=== PATIENT | female | born 1965 | race African-American/Black ===

== ENCOUNTER 2016-04-08 23:48 | Emergency (ER) | payer SELFPAY ==
[~2016-04-08] VITALS: Ht 167.6 cm; Wt 89.8 kg
[~2016-04-08 23:48] MED LIST: ACET-704 PO; AZIT1PAC7 PO; CYCL10TA2 PO; HYDR-963 PO; LIDO20SO PO; METF500T4 PO; METH4TAB2 PO; NAPR500T3 PO; PROAIR HFA8.5 GM INH; PROM25TA10 PO
[2016-04-09] MEDS ORDERED: LIDOCAINE 1% / SOD BICARB 8.4% 20 ML VIAL. IJ ONE ×2 (01:44→02:00)
[2016-04-09] MEDS ORDERED: SULF1TAB24 PO (03:00)
[2016-04-09] MEDS ORDERED: HYDR-971 PO (03:00)
--- NOTE | 2016-04-09 03:01 | PHYS DOC ---
Past Medical History Past Medical History: Diabetes-Type II, Other Additional Past Medical Histor: chronic back and hip pain,bacterial vaginosis, ENDOMETRIOSIS Past Surgical History: Other Additional Past Surgical Histo: toenails, L ARM SURG Alcohol Use: Occasionally Drug Use: None Adult General Chief Complaint Chief Complaint: BREAST PROBLEM HPI HPI Patient is a 50 year old female who presents with complaints of painful swelling to the right breast. Patient states that this started 2 weeks ago and has significantly worsened over the past 2 days. Patient noticed a large swollen area along the medial lower portion of her right breast. Patient denies any drainage from this area. Patient states that she is noticing increasing redness. Patient states that the lesion is very tender to touch and rates her pain currently is 10 out of 10. Patient denies any history of similar symptoms. Patient has not taken any medications to help with symptoms. Patient has history of type 2 diabetes mellitus. Patient has not had any associated fever, lightheadedness, or shortness of breath. Review of Systems Review of Systems Constitutional: Denies fever or chills [] Eyes: Denies change in visual acuity, redness, or eye pain [] HENT: Denies nasal congestion or sore throat [] Respiratory: Denies cough or shortness of breath [] Cardiovascular: No additional information not addressed in HPI [] GI: Denies abdominal pain, nausea, vomiting, bloody stools or diarrhea [] : Denies dysuria or hematuria [] Musculoskeletal: Denies back pain or joint pain [] Integument: Tenderness, redness, and swelling to right breast [] Neurologic: Denies headache, focal weakness or sensory changes [] Endocrine: Denies polyuria or polydipsia [] Current Medications Current Medications Current Medications Medications (Trade) Dose Ordered Sig/[facility] Start Time Stop Time Status Last Admin Dose Admin Acetaminophen/ Hydrocodone Bitart (Lortab 5/325) 1 tab 1X ONCE 04/09/16 03:15 04/09/16 03:16 DC 04/09/16 03:25 1 TAB Lidocaine/Sodium Bicarbonate (Buffered Lidocaine 1%) 20 ml 1X ONCE 04/09/16 02:00 04/09/16 02:01 DC 04/09/16 02:00 20 ML Trimethoprim/ Sulfamethoxazole (Bactrim Ds) 1 tab 1X ONCE 04/09/16 03:15 04/09/16 03:16 DC 04/09/16 03:24 1 TAB Allergies Allergies Allergies Coded Allergies Type Severity Reaction Last Updated Verified No Known Drug Allergies 04/11/15 No Physical Exam Physical Exam Constitutional: Alert, obese, afebrile, appears in mild to moderate discomfort. [] HENT: Normocephalic, atraumatic, bilateral external ears normal, oropharynx moist, no oral exudates, nose normal. [] Eyes: PERRLA, EOMI, conjunctiva normal, no discharge. [] Neck: Normal range of motion, no tenderness, supple, no stridor. [] Cardiovascular:Heart rate regular rhythm, no murmur [] Lungs & Thorax: Bilateral breath sounds clear to auscultation, 3-1/2 cm fluctuant lesion located in the inferior medial quadrant, surrounding induration and erythema present, tender to palpation [] Abdomen: Bowel sounds normal, soft, no tenderness, no masses, no pulsatile masses. [] Extremities: No tenderness, no cyanosis, no clubbing, ROM intact, no edema. [] Neurologic: Alert and oriented X 3, normal motor function, normal sensory function, no focal deficits noted. [] Current Patient Data Vital Signs Vital Signs Date Time Temp Pulse Resp B/P Pulse Ox O2 Delivery O2 Flow Rate FiO2 04/09/16 03:25 16 Room Air 04/09/16 03:09 76 133/91 100 04/09/16 00:23 97.9 97.9 EKG EKG Not performed [] Radiology/Procedures Radiology/Procedures Not performed [] Course & Med Decision Making Course & Med Decision Making Pertinent Labs and Imaging studies reviewed. (See chart for details) The patient's abscess was drained as outlined in the procedure note. Patient was started on Bactrim. Patient was referred to Dr. Gamino of general surgery for follow-up in 3-4 days. Advised return to emergency department for any worsening symptoms. Patient voiced understanding and in agreement with treatment plan. Dragon Disclaimer Dragon Disclaimer This electronic medical record was generated, in whole or in part, using a voice recognition dictation system. Incision and Drainage Indication: Right breast abscess Procedure: The patient was positioned appropriately. Local anesthesia was achieved with injection of buffered lidocaine 1%. An incision was then made over the apex of the lesion and drainage of approximately 5-10 mL's of purulent material was expressed. The drainage cavity was packed with sterile gauze. The patients tetanus status updated as needed. The patient tolerated the procedure well. Complications: none. Departure Departure Impression: Primary Impression: Breast abscess Disposition: 01 HOME, SELF-CARE Condition: IMPROVED Referrals: HYUN RGEENE (PCP) LISSETT GAMINO MD Patient Instructions: Abscess, Abscess, Care After Additional Instructions: Follow-up with general surgery in the next 3-4 days. If he cannot get in with the general surgeon in that time, you will need to see your primary doctor as she will need to have your packing replaced within that time. Finish all antibiotics as prescribed. Return to the emergency department for any worsening symptoms. Scripts Hydrocodone/Apap 5-325 ([place] 5-325 Tablet)1 Each Tablet1-2 Tab PO Q4-6HRS PRN PAIN #20 TAB Prov:FERMIN GUILLAUME MD 04/09/16 Sulfamethoxazole/Trimethoprim (Bactrim Ds Tablet)1 Each Tablet1 Tab PO BID #20 TAB Prov:FERMIN GUILLAUME MD 04/09/16 FERMIN GUILLAUME MD Apr 09, 2016 03:01
[2016-04-09 03:09] VITALS: BP 133/91
[2016-04-09] MEDS ORDERED: HYDROCODONE/APAP 5/325MG TABLET. PO ONE (03:15)
[2016-04-09] MEDS ORDERED: SMZ/TMP 800/160MG TABLET. PO ONE (03:15)
== END 2016-04-09 03:28 | disposition home or self-care (01) ==
LOC: ER 23:48
DX: N61.1 Abscess of the breast and nipple (principal); E11.9 Type 2 diabetes mellitus without complications; G89.29 Other chronic pain
CPT/HCPCS: 10060; 99283-25

== ENCOUNTER 2016-06-10 07:26 | Emergency (ER) | payer SELFPAY ==
[~2016-06-10] VITALS: Ht 167.6 cm; Wt 86.2 kg
[~2016-06-10 07:26] MED LIST changes: +HYDR-971 PO; +SULF1TAB24 PO
[2016-06-10] MEDS ORDERED: IV NORMAL SALINE 1000ML BAG 1,000 ML IV SCH (07:42)
[2016-06-10] MEDS ORDERED: FENTANYL PF 100 MCG/2 ML VIAL. IV ONE (07:45)
[2016-06-10] MEDS ORDERED: 0.9 % SODIUM CHLORIDE 10 ML DISP.SYRIN. IV PRN (07:45)
[2016-06-10] MEDS ORDERED: ONDANSETRON PF 4 MG/2 ML VIAL. IV ONE (07:45)
[2016-06-10] MEDS ORDERED: KETOROLAC TROMETHAMINE 30 MG/ML INJ. IV ONE (07:45)
--- NOTE | 2016-06-10 07:48 | PHYS DOC ---
Past Medical History Past Medical History: Diabetes-Type II, Other Additional Past Medical Histor: chronic back and hip pain,bacterial vaginosis, ENDOMETRIOSIS Past Surgical History: Other Additional Past Surgical Histo: toenails, L ARM SURG Alcohol Use: Occasionally Drug Use: None Adult General Chief Complaint Chief Complaint: FLANK PAIN [place] [employer] HPI Patient is a 50 year old female presents emergency Department today with complaint of atraumatic left flank pain that radiates to her lower abdomen 4 days. Patient states that the onset was sudden. She reports episodes of nausea without vomiting. She denies fevers or chills, myalgias or arthralgias. Patient states that she has had urinary tract infections and kidney infections in the past. She denies antibiotic use within the past 90 days. She denies any history of kidney stones. Patient does have a history of chronic back pain which she takes T-4s and "a muscle relaxer" for this. She states that the pain in her back is different than typical. She denies radiation the pain down her leg she denies saddle anesthesia, see or bowel. Patient states that she does feel some pressure when she attempts to urinate. She denies any hematuria. Patient denies any history of gastrointestinal disease. She denies any previous abdominal surgeries. She had a pelvic laparoscopic procedure once for endometriosis. She denies any history of previous bowel obstructions. Review of Systems Review of Systems Constitutional: Denies fever or chills [] Eyes: Denies change in visual acuity, redness, or eye pain [] HENT: Denies nasal congestion or sore throat [] Respiratory: Denies cough or shortness of breath [] Cardiovascular: No additional information not addressed in HPI [] GI: Denies abdominal pain, nausea, vomiting, bloody stools or diarrhea [] : Denies dysuria or hematuria [] Musculoskeletal: Denies back pain or joint pain [] Integument: Denies rash or skin lesions [] Neurologic: Denies headache, focal weakness or sensory changes [] Endocrine: Denies polyuria or polydipsia [] Current Medications Current Medications Current Medications Medications (Trade) Dose Ordered Sig/[facility] Start Time Stop Time Status Last Admin Dose Admin Fentanyl Citrate (Fentanyl 2ml Vial) 50 mcg 1X ONCE 06/10/16 07:45 06/10/16 07:57 DC 06/10/16 08:20 50 MCG Ketorolac Tromethamine (Toradol) 30 mg 1X ONCE 06/10/16 07:45 06/10/16 07:57 DC 06/10/16 08:20 30 MG Ondansetron HCl (Zofran) 4 mg 1X ONCE 06/10/16 07:45 06/10/16 07:57 DC 06/10/16 08:19 4 MG Sodium Chloride (Iv Sodium Chloride 0.9% 1000ml Bag) 1,000 ml @ 1,000 mls/hr Q1H 06/10/16 07:42 06/10/16 08:41 DC 06/10/16 08:21 1,000 MLS/HR Sodium Chloride (Normal Saline Flush) 10 ml QSHIFT PRN 06/10/16 07:45 06/10/16 08:19 10 ML Allergies Allergies Allergies Coded Allergies Type Severity Reaction Last Updated Verified No Known Drug Allergies 04/11/15 No Physical Exam Physical Exam Constitutional: Well developed, well nourished, mild, non-toxic appearance. HENT: Normocephalic, atraumatic, bilateral external ears normal, oropharynx moist, no oral exudates, nose normal. [] Eyes: PERRLA, EOMI, conjunctiva normal, no discharge. [] Neck: Normal range of motion, no tenderness, supple, no stridor. [] Cardiovascular:Heart rate regular rhythm, no murmur Lungs & Thorax: Bilateral breath sounds clear to auscultation Abdomen: Bowel sounds normal, soft, no tenderness, no masses, no pulsatile masses. Skin: Warm, dry, no erythema, no rash. [] Back: Patient's back is without any evidence of injury or overlying skin lesions such as shingles. Chest tender to percussion in the left lower CVA region. There is no tenderness to the right side of the back or CVA region. Extremities: No tenderness, no cyanosis, no clubbing, ROM intact, no edema. [] Neurologic: Alert and oriented X 3, normal motor function, normal sensory function, no focal deficits noted. [] Psychologic: Affect normal, judgement normal, mood normal. [] Current Patient Data Vital Signs Vital Signs Date Time Temp Pulse Resp B/P Pulse Ox O2 Delivery O2 Flow Rate FiO2 06/10/16 08:20 16 98 Room Air 06/10/16 07:38 97.7 80 164/85 97.7 Lab Values Laboratory Tests Test 06/10/16 07:30 06/10/16 08:10 06/10/16 09:15 Urine Collection Type Unknown Urine Color Yellow Urine Clarity Clear Urine pH 6.0 Urine Specific [place] 1.025 Urine Protein 30mg/dL (NEG-TRACE) Urine Glucose (UA) >=1000mg/dL (NEG) Urine Ketones (Stick) Negativemg/dL (NEG) Urine Blood Negative (NEG) Urine Nitrite Negative (NEG) Urine Bilirubin Negative (NEG) Urine Urobilinogen Dipstick 0.2mg/dL (0.2 mg/dL) Urine Leukocyte Esterase Negative (NEG) Urine RBC 1-2/HPF (0-2) Urine WBC 1-4/HPF (0-4) Urine Squamous Epithelial Cells Mod/LPF Urine Bacteria Few/HPF (0-FEW) Urine Mucus Mod/LPF White Blood Count 5.7x10^3/uL (4.0-11.0) Red Blood Count 4.67x10^6/uL (3.50-5.40) Hemoglobin 14.0g/dL (12.0-15.5) Hematocrit 42.7% (36.0-47.0) Mean Corpuscular Volume 92fL (79-100) Mean Corpuscular Hemoglobin 30pg (25-35) Mean Corpuscular Hemoglobin Concent 33g/dL (31-37) Red Cell Distribution Width 14.7% (11.5-14.5) H Platelet Count 328x10^3/uL (140-400) Neutrophils (%) (Auto) 47% (31-73) Lymphocytes (%) (Auto) 41% (24-48) Monocytes (%) (Auto) 8% (0-9) Eosinophils (%) (Auto) 3% (0-3) Basophils (%) (Auto) 1% (0-3) Neutrophils # (Auto) 2.7x10^3uL (1.8-7.7) Lymphocytes # (Auto) 2.4x10^3/uL (1.0-4.8) Monocytes # (Auto) 0.4x10^3/uL (0.0-1.1) Eosinophils # (Auto) 0.2x10^3/uL (0.0-0.7) Basophils # (Auto) 0.1x10^3/uL (0.0-0.2) Sodium Level 136mmol/L (136-145) Potassium Level 4.1mmol/L (3.5-5.1) Chloride Level 100mmol/L (98-107) Carbon Dioxide Level 28mmol/L (21-32) Anion Gap 8 (6-14) Blood Urea Nitrogen 9mg/dL (7-20) Creatinine 0.7mg/dL (0.6-1.0) Estimated GFR (Cockcroft-Gault) 106.3 BUN/Creatinine Ratio 13 (6-20) Glucose Level 288mg/dL (70-99) H Calcium Level 8.2mg/dL (8.5-10.1) L Total Bilirubin 0.2mg/dL (0.2-1.0) Aspartate Amino Transferase (AST) 12U/L (15-37) L Alanine Aminotransferase (ALT) 23U/L (14-59) Alkaline Phosphatase 77U/L (46-116) Total Protein 6.5g/dL (6.4-8.2) Albumin 2.9g/dL (3.4-5.0) L Albumin/Globulin Ratio 0.8 (1.0-1.7) L Lipase 107U/L (73-393) Laboratory Tests 06/10/16 08:10 Laboratory Tests 06/10/16 09:15 EKG EKG [] Radiology/Procedures Radiology/Procedures [facility] [address] [place] [address] IMAGING REPORT Signed PATIENT: JORDON OSORIO ACCOUNT: [id number] : 1965 LOCATION: ER AGE: 50 SEX: F EXAM STATUS: REG ER ORD. PHYSICIAN: TAWN HARVEY REASON: LEFT flank pain radiating to lower abdomen PROCEDURE: CT ABDOMEN PELVIS WO CONTRAST CT of the abdomen and pelvis without contrast, 06/10/2016: History: Left flank pain Noncontrast scans were obtained through the urinary tract utilizing the renal stone protocol. This a limited study for evaluation of the possibility of urinary tract calculi. Comparison is made to a study from 03/17/2015. No intrarenal calculi are identified. The renal collecting systems and ureters are not dilated. The ureters cannot be clearly traced through the distal pelvis due to their small size. No ureteral calculus is identified. Mild vascular calcifications are present in the pelvis. The partially filled urinary bladder is unremarkable. There is minimal linear scarring or atelectasis in the lung bases. There is mild heterogeneous decreased density in the liver, best seen in the right lobe. The geographic pattern suggests that this probably represents patchy fatty infiltration. The gallbladder is unremarkable. No pancreatic abnormality is seen. The spleen is of normal size. Aortoiliac calcific plaquing is present without evidence of aneurysm. No abdominal or pelvic adenopathy is seen. There are a few scattered colonic diverticula. No paracolonic inflammatory process is seen. There is a moderate amount of stool scattered throughout the colon. The appendix shows no abnormality. The small bowel loops are unremarkable. No free fluid or free air is evident in the abdomen or pelvis. There is anterior fascial bulging at the umbilical level, containing only fat. IMPRESSION: 1. No urinary tract calculi are identified. 2. Mild colonic diverticulosis. 3. Mildly heterogeneous liver in a pattern suggesting patchy fatty infiltration. PQRS Compliance Statement: One or more of the following individualized dose reduction techniques were utilized for this examination: 1. Automated exposure control 2. Adjustment of the mA and/or kV according to patient size 3. Use of iterative reconstruction technique DICTATED and SIGNED BY: VON COBB MD DATE: 06/10/16926 CC: TWAN HARVEY; HYUN GREENE ~ ] Course & Med Decision Making Course & Med Decision Making Patient's had an uneventful stay in the emergency department feels "much better ". Patient readily admits that she does not want check her blood sugar daily. 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 At this time, patient feels comfortable enough to go home and follow up with her primary care doctor. [place] Disclaimer Dragon Disclaimer This electronic medical record was generated, in whole or in part, using a voice recognition dictation system. Departure Departure Impression: Primary Impression: Flank pain Additional Impression: Hyperglycemia due to type 2 diabetes mellitus Disposition: 01 HOME, SELF-CARE Condition: IMPROVED Referrals: HYUN GREENE (PCP) Patient Instructions: 1800 Calorie Diet for Diabetes Meal Planning, Flank Pain , [id number] Additional Instructions: 1. The CT scan of your abdomen and pelvis today shows no kidney stones, inflammation of your internal organs or obstructions of your bowel. Your lab tests today show no evidence of infection. Your blood sugar today, however, is 288. 2. Review the discharge instructions provided for self-care and reasons to return to the emergency department. It is very important very important to follow-up with your primary care doctor to discuss blood sugar management. 3. Take the medication as prescribed. 4. Contact your primary care doctor's office in the morning to schedule follow- up appointment for reevaluation within 5-7 days. 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
[2016-06-10 07:54] LABS: BILIRUBIN,URINE NEGATIVE (NEG); GLUCOSE,URINE >=1000 mg/dL (NEG); NITRITE,URINE NEGATIVE (NEG); PROTEIN,URINE 30 mg/dL (NEG-TRACE); UROBILINOGEN,URINE 0.2 mg/dL (0.2 mg/dL)
[2016-06-10 08:05] LABS: BACTERIA,URINE FEW /HPF (0-FEW); SQUAMOUS EPITHELIAL CELL,UR MOD /LPF
[2016-06-10 08:16] LABS: BASO # 0.1 x10^3/uL (0.0-0.2); BASO % 1 % (0-3); EOS % 3 % (0-3); HEMATOCRIT 42.7 % (36.0-47.0); LYMPH # 2.4 x10^3/uL (1.0-4.8); LYMPH % 41 % (24-48); MEAN CORPUSCULAR HEMOGLOBIN 30 pg (25-35); MEAN CORPUSCULAR HGB CONC 33 g/dL (31-37); MEAN CORPUSCULAR VOLUME 92 fL (79-100); MONO % 8 % (0-9); NEUT % 47 % (31-73); PLATELET COUNT 328 x10^3/uL (140-400); RED BLOOD COUNT 4.67 x10^6/uL (3.50-5.40); RED CELL DISTRIBUTION WIDTH 14.7 % (11.5-14.5); WHITE BLOOD COUNT 5.7 x10^3/uL (4.0-11.0)
[2016-06-10 09:30] VITALS: BP 154/77
[2016-06-10 09:38] LABS: CALCIUM 8.2 mg/dL (8.5-10.1); CREATININE 0.7 mg/dL (0.6-1.0); GFR 106.3; POTASSIUM 4.1 mmol/L (3.5-5.1)
--- NOTE | 2016-06-10 09:40 | RAD ---
CT of the abdomen and pelvis without contrast, 06/10/2016: History: Left flank pain Noncontrast scans were obtained through the urinary tract utilizing the renal stone protocol. This a limited study for evaluation of the possibility of urinary tract calculi. Comparison is made to a study from 03/17/2015. No intrarenal calculi are identified. The renal collecting systems and ureters are not dilated. The ureters cannot be clearly traced through the distal pelvis due to their small size. No ureteral calculus is identified. Mild vascular calcifications are present in the pelvis. The partially filled urinary bladder is unremarkable. There is minimal linear scarring or atelectasis in the lung bases. There is mild heterogeneous decreased density in the liver, best seen in the right lobe. The geographic pattern suggests that this probably represents patchy fatty infiltration. The gallbladder is unremarkable. No pancreatic abnormality is seen. The spleen is of normal size. Aortoiliac calcific plaquing is present without evidence of aneurysm. No abdominal or pelvic adenopathy is seen. There are a few scattered colonic diverticula. No paracolonic inflammatory process is seen. There is a moderate amount of stool scattered throughout the colon. The appendix shows no abnormality. The small bowel loops are unremarkable. No free fluid or free air is evident in the abdomen or pelvis. There is anterior fascial bulging at the umbilical level, containing only fat. IMPRESSION: 1. No urinary tract calculi are identified. 2. Mild colonic diverticulosis. 3. Mildly heterogeneous liver in a pattern suggesting patchy fatty infiltration. PQRS Compliance Statement: One or more of the following individualized dose reduction techniques were utilized for this examination: 1. Automated exposure control 2. Adjustment of the mA and/or kV according to patient size 3. Use of iterative reconstruction technique
[2016-06-10 10:03] LABS: ALBUMIN 2.9 g/dL (3.4-5.0); ALBUMIN/GLOBULIN RATIO 0.8 (1.0-1.7); TOTAL BILIRUBIN 0.2 mg/dL (0.2-1.0); TOTAL PROTEIN 6.5 g/dL (6.4-8.2)
[2016-06-10] MEDS ORDERED: HYDR-971 PO (10:32)
[2016-06-10] MEDS ORDERED: ORPH100T PO (10:32)
[2016-06-10] MEDS ORDERED: HYDROCODONE/APAP 5/325MG TABLET. PO ONE (10:45)
== END 2016-06-10 10:40 | disposition home or self-care (01) ==
LOC: ER 07:26
DX: R10.9 Unspecified abdominal pain (principal); E11.65 Type 2 diabetes mellitus with hyperglycemia; G89.29 Other chronic pain
CPT/HCPCS: 36415; 74176; 80053; 81001; 83690; 85027; 96361; 96374; 96375; 99285; J1885; J2405; J3010; J7030

== ENCOUNTER 2016-07-02 17:41 | Emergency (ER) | payer SELFPAY ==
[~2016-07-02] VITALS: Ht 167.6 cm; Wt 85.7 kg
[~2016-07-02 17:41] MED LIST changes: +ORPH100T PO
[2016-07-02 17:50] VITALS: BP 181/96
[2016-07-02] MEDS ORDERED: METF500T9 PO (18:04)
[2016-07-02] MEDS ORDERED: NYST15CR2 TP (18:04)
--- NOTE | 2016-07-02 18:05 | PHYS DOC ---
Past Medical History Past Medical History: Diabetes-Type II, Other Additional Past Medical Histor: chronic back and hip pain,bacterial vaginosis, ENDOMETRIOSIS Past Surgical History: Other Additional Past Surgical Histo: toenails, L ARM SURG laproscopy Alcohol Use: Occasionally Drug Use: None Adult General Chief Complaint Chief Complaint: ABSCESS HPI HPI Patient is a 50 year old male presents to the emergency department with a rash beneath her right breast. She states she's in the emergency department approximately one month ago and had an abscess drained. She states that she took the medicines as directed and actually felt better until approximately 3 days ago when she developed a rash beneath the breast. She also states she is out of her metformin Sten release and is seeking a refill amount as well. She denies any chest pain, shortness of breath, nausea, vomiting, chest or abdominal pain. Review of Systems Review of Systems Constitutional: Denies fever or chills [] Eyes: Denies change in visual acuity, redness, or eye pain [] HENT: Denies nasal congestion or sore throat [] Respiratory: Denies cough or shortness of breath [] Cardiovascular: No additional information not addressed in HPI [] GI: Denies abdominal pain, nausea, vomiting, bloody stools or diarrhea [] : Denies dysuria or hematuria [] Musculoskeletal: Denies back pain or joint pain [] Integument: Denies rash or skin lesions [] Neurologic: Denies headache, focal weakness or sensory changes [] Endocrine: Denies polyuria or polydipsia [] Allergies Allergies Allergies Coded Allergies Type Severity Reaction Last Updated Verified No Known Drug Allergies 04/11/15 No Physical Exam Physical Exam Constitutional: Well developed, well nourished, no acute distress, non-toxic appearance. [] HENT: Normocephalic, atraumatic, bilateral external ears normal, oropharynx moist, no oral exudates, nose normal. [] Eyes: PERRLA, EOMI, conjunctiva normal, no discharge. [] Neck: Normal range of motion, no tenderness, supple, no stridor. [] Cardiovascular:Heart rate regular rhythm, no murmur [] Lungs & Thorax: Bilateral breath sounds clear to auscultation [] Abdomen: Bowel sounds normal, soft, no tenderness, no masses, no pulsatile masses. [] Skin: Warm, dry, no erythema, no rash. [] Back: No tenderness, no CVA tenderness. [] Extremities: No tenderness, no cyanosis, no clubbing, ROM intact, no edema. [] Neurologic: Alert and oriented X 3, normal motor function, normal sensory function, no focal deficits noted. [] Psychologic: Affect normal, judgement normal, mood normal. [] EKG EKG [] Radiology/Procedures Radiology/Procedures [] Course & Med Decision Making Course & Med Decision Making Pertinent Labs and Imaging studies reviewed. (See chart for details) [] Dragon Disclaimer Dragon Disclaimer This electronic medical record was generated, in whole or in part, using a voice recognition dictation system. Departure Departure Impression: Primary Impression: Candidal dermatitis Additional Impression: Medication refill Disposition: HOME, SELF-CARE Condition: STABLE Referrals: HYUN GREENE (PCP) Patient Instructions: Medication Refill, Emergency Department Scripts Nystatin/Triamcin (NYSTATIN-TRIAMCINOLONE CREAM) 15 Gm Cream..g. 1 IMANI TP BID for 10 Days, #30 GM 1 Refill Prov: LOLY MCKINNON APRN 07/02/16 Metformin Hcl (METFORMIN HCL ER) 500 Mg Tab.er.24h 500 MG PO [id number] for ANTI-DIABETIC, #30 TAB 1 Refill Prov: LOLY MCKINNON APRN 07/02/16 Problem Qualifiers LOLY MCKINNON APRN July 02, 2016 18:04
== END 2016-07-02 18:20 | disposition home or self-care (01) ==
LOC: ER 17:41
DX: L30.9 Dermatitis, unspecified (principal); Z76.0 Encounter for issue of repeat prescription; E11.9 Type 2 diabetes mellitus without complications
CPT/HCPCS: 99283

== ENCOUNTER 2016-08-25 16:28 | Emergency (ER) | payer OTHER ==
[~2016-08-25] VITALS: Ht 167.6 cm; Wt 84.4 kg
[~2016-08-25 16:28] MED LIST changes: -AZIT1PAC7 PO; +AZIT1PAC9 PO; +METF500T9 PO; +NYST15CR2 TP
[2016-08-25 17:00] VITALS: BP 132/79
[2016-08-25] MEDS ORDERED: CYCL10TA2 PO (17:05)
[2016-08-25] MEDS ORDERED: TRAM50TA PO (17:05)
[2016-08-25] MEDS ORDERED: NAPR500T PO (17:05)
--- NOTE | 2016-08-25 17:06 | PHYS DOC ---
Past Medical History Past Medical History: Diabetes-Type II, Other Additional Past Medical Histor: chronic back and hip pain,bacterial vaginosis, ENDOMETRIOSIS Past Surgical History: Other Additional Past Surgical Histo: toenails, L ARM SURG laproscopy Alcohol Use: Occasionally Drug Use: None Adult General Chief Complaint Chief Complaint: LOWER BACK PAIN OR INJURY [facility] HPI Patient is a 50 year old female presents to the emergency department with complaints of exacerbation of her chronic back pain. Patient states she is not currently taking any medications as she does not have healthcare insurance. She states she resumed her healthcare insurance yesterday and had increase in the right lower back pain. She states the pain is chronic for her and is typical of her chronic back pain. She is here seeking pain relief. She denies abdominal pain, she denies loss of bowel or bladder control. She denies loss of function of lower shimmy. Review of Systems Review of Systems Constitutional: Denies fever or chills [] Eyes: Denies change in visual acuity, redness, or eye pain [] HENT: Denies nasal congestion or sore throat [] Respiratory: Denies cough or shortness of breath [] Cardiovascular: No additional information not addressed in HPI [] GI: Denies abdominal pain, nausea, vomiting, bloody stools or diarrhea [] : Denies dysuria or hematuria [] Musculoskeletal: Low back pain Integument: Denies rash or skin lesions [] Neurologic: Denies headache, focal weakness or sensory changes [] Endocrine: Denies polyuria or polydipsia [] Allergies Allergies Allergies Coded Allergies Type Severity Reaction Last Updated Verified No Known Drug Allergies 04/11/15 No Physical Exam Physical Exam Constitutional: Well developed, well nourished, no acute distress, non-toxic appearance. [] Neck: Normal range of motion, no tenderness, supple, no stridor. [] Cardiovascular:Heart rate regular rhythm, no murmur [] Lungs & Thorax: Bilateral breath sounds clear to auscultation [] Abdomen: Bowel sounds normal, soft, no tenderness, no masses, no pulsatile masses. [] Skin: Warm, dry, no erythema, no rash. [] Back: Mild tenderness to palpate right sacroiliac crest into the right hip. Negative straight raise leg test. She has no saddle anesthesia. Muscle strength 5 over 5, DTRs 2 over 4. Neurovascular intact distally. Extremities: No tenderness, no cyanosis, no clubbing, ROM intact, no edema. [] Neurologic: Alert and oriented X 3, normal motor function, normal sensory function, no focal deficits noted. [] Psychologic: Affect normal, judgement normal, mood normal. [] EKG EKG [] Radiology/Procedures Radiology/Procedures [] Course & Med Decision Making Course & Med Decision Making Pertinent Labs and Imaging studies reviewed. (See chart for details) [] Dragon Disclaimer Dragon Disclaimer This electronic medical record was generated, in whole or in part, using a voice recognition dictation system. Departure Departure Impression: Primary Impression: Back pain Disposition: HOME, SELF-CARE Condition: STABLE Referrals: HYUN GREENE (PCP) Patient Instructions: Chronic Back Pain Scripts Naproxen (NAPROSYN) 500 Mg Tablet 1 TAB PO BID Y for PAIN, #20 TAB 1 Refill Prov: LOLY MCKINNON APRN 08/25/16 Tramadol Hcl (TRAMADOL HCL) 50 Mg Tablet 1 TAB PO PRN Q6HRS Y for PAIN, #12 TAB Prov: LOLY MCKINNON APRN 08/25/16 Cyclobenzaprine Hcl (CYCLOBENZAPRINE HCL) 10 Mg Tablet 1 TAB PO TID Y for MUSCLE SPASMS, #30 TAB Prov: LOLY MCKINNON APRN 08/25/16 LOLY MCKINNON APRN Aug 25, 2016 17:05
[2016-08-25] MEDS ORDERED: ORPHENADRINE CITRATE 60 MG/2 ML VIAL. IM ONE (17:30)
== END 2016-08-25 17:48 | disposition home or self-care (01) ==
LOC: ER 16:28
DX: M54.5 Low back pain (principal); G89.29 Other chronic pain; E11.9 Type 2 diabetes mellitus without complications
CPT/HCPCS: 96372; 99283; J2360

== ENCOUNTER 2017-02-26 11:20 | Emergency (ER) | payer OTHER ==
[2017-02-26] MEDS: KETOROLAC 60 MG/2 ML INJ. IM (12:00)
[2017-02-26] MEDS: LIDOCAINE 2% VISCOUS 15 ML SOLUTION. SWSW (12:00)
== END 2017-02-26 12:19 | disposition home or self-care (01) ==
LOC: ER 11:20
DX: J02.8 Acute pharyngitis due to other specified organisms (principal); B97.89 Other viral agents as the cause of diseases classified elsewhere; E11.9 Type 2 diabetes mellitus without complications
CPT/HCPCS: 96372; 99283-25; J1885

== ENCOUNTER 2017-02-27 21:32 | Emergency (ER) | payer OTHER ==
[2017-02-27] MEDS: predniSONE 20 MG TABLET PO (22:04)
[2017-02-27] MEDS: diazePAM 5 MG TABLET PO (22:04)
[2017-02-27] MEDS: MORPHINE SULFATE 10 MG/ML VIAL. IM (22:05)
== END 2017-02-27 22:49 | disposition home or self-care (01) ==
LOC: ER 21:32
DX: J06.9 Acute upper respiratory infection, unspecified (principal); M54.2 Cervicalgia; H92.01 Otalgia, right ear; J02.8 Acute pharyngitis due to other specified organisms; B97.89 Other viral agents as the cause of diseases classified elsewhere; E11.9 Type 2 diabetes mellitus without complications
CPT/HCPCS: 96372; 99283-25; J2270; J7512

== ENCOUNTER 2017-04-04 00:07 | Emergency (ER) | payer OTHER ==
[2017-04-04 00:42] LABS: URINE HCG POC HCG NEGATIVE (Negative)
[2017-04-04 01:04] LABS: BILIRUBIN,URINE NEGATIVE (NEG); CLARITY,URINE CLEAR; COLOR,URINE YELLOW; GLUCOSE,URINE >=1000 mg/dL (NEG); NITRITE,URINE NEGATIVE (NEG); PROTEIN,URINE NEGATIVE (NEG-TRACE); UROBILINOGEN,URINE 0.2 mg/dL (0.2 mg/dL)
[2017-04-04 01:23] LABS: BACTERIA,URINE FEW /HPF (0-FEW); RBC,URINE OCC /HPF (0-2); SQUAMOUS EPITHELIAL CELL,UR MOD /LPF; YEAST,URINE PRESENT /HPF
== END 2017-04-04 01:54 | disposition home or self-care (01) ==
LOC: ER 00:07
DX: B37.3 Candidiasis of vulva and vagina (principal); E11.9 Type 2 diabetes mellitus without complications; G89.29 Other chronic pain; Z87.891 Personal history of nicotine dependence
CPT/HCPCS: 81001; 81025; 99283

== ENCOUNTER 2017-06-12 23:57 | Emergency (ER) | payer OTHER ==
[2017-06-13] MEDS ORDERED: SODIUM PHOSPHATES 19/7GM 133 ML ENEMA. (00:32)
[2017-06-13] MEDS: KETOROLAC 60 MG/2 ML INJ. IM (00:42)
[2017-06-13] MEDS: MINERAL OIL 133 ML ENEMA. PR (00:42)
[2017-06-13 02:35] LABS: ADD MAN DIFF? NO
[2017-06-13] MEDS: ONDANSETRON PF 4 MG/2 ML VIAL. IV (02:35)
[2017-06-13] MEDS: IV NORMAL SALINE 1000ML BAG 1,000 ML IV ×3 (02:35→04:00)
[2017-06-13 02:38] LABS: BILIRUBIN,URINE NEGATIVE (NEG); CLARITY,URINE CLEAR; COLOR,URINE YELLOW; GLUCOSE,URINE >=1000 mg/dL (NEG); NITRITE,URINE NEGATIVE (NEG); PH,URINE 5.5; PROTEIN,URINE NEGATIVE (NEG-TRACE); UROBILINOGEN,URINE 0.2 mg/dL (0.2 mg/dL)
[2017-06-13 02:39] LABS: BASO # 0.1 x10^3/uL (0.0-0.2); BASO % 1 % (0-3); EOS # 0.1 x10^3/uL (0.0-0.7); EOS % 1 % (0-3); HEMATOCRIT 38.7 % (36.0-47.0); LYMPH # 1.6 x10^3/uL (1.0-4.8); LYMPH % 13 % (24-48); MEAN CORPUSCULAR HEMOGLOBIN 31 pg (25-35); MEAN CORPUSCULAR HGB CONC 34 g/dL (31-37); MEAN CORPUSCULAR VOLUME 91 fL (79-100); MONO # 0.6 x10^3/uL (0.0-1.1); MONO % 5 % (0-9); NEUT # 9.8 x10^3uL (1.8-7.7); NEUT % 80 % (31-73); PLATELET COUNT 316 x10^3/uL (140-400); RED BLOOD COUNT 4.28 x10^6/uL (3.50-5.40); WHITE BLOOD COUNT 12.1 x10^3/uL (4.0-11.0)
[2017-06-13 02:45] LABS: ANION GAP 10 (6-14); BLOOD UREA NITROGEN 18 mg/dL (7-20); BUN/CREATININE RATIO 20 (6-20); CALCIUM 9.1 mg/dL (8.5-10.1); CARBON DIOXIDE 27 mmol/L (21-32); CHLORIDE 99 mmol/L (98-107); CREATININE 0.9 mg/dL (0.6-1.0); GFR 79.3; GLUCOSE 487 mg/dL (70-99); POTASSIUM 4.3 mmol/L (3.5-5.1); SODIUM 136 mmol/L (136-145)
[2017-06-13 02:48] LABS: BACTERIA,URINE 0 /HPF (0-FEW); RBC,URINE 0 /HPF (0-2); SQUAMOUS EPITHELIAL CELL,UR FEW /LPF; WBC,URINE OCC /HPF (0-4); YEAST,URINE PRESENT /HPF
[2017-06-13 02:50] LABS: ALBUMIN 3.2 g/dL (3.4-5.0); ALBUMIN/GLOBULIN RATIO 0.8 (1.0-1.7); ALK PHOS 144 U/L (46-116); ALT (SGPT) 34 U/L (14-59); AST (SGOT) 13 U/L (15-37); LIPASE 119 U/L (73-393); TOTAL BILIRUBIN 0.2 mg/dL (0.2-1.0); TOTAL PROTEIN 7.2 g/dL (6.4-8.2)
[2017-06-13] MEDS ORDERED: CONTRAST GIVEN MC (03:00)
[2017-06-13] MEDS: diphenhydrAMINE 50 MG/ML VIAL IVP (03:05)
[2017-06-13] MEDS ORDERED: diphenhydrAMINE 50 MG/ML VIAL (03:05)
[2017-06-13] MEDS: IOHEXOL 300 MG/ML 100ML VIAL. IV (03:11)
[2017-06-13] MEDS: methylPREDNISolone SOD SUCC PF 125 MG/2 ML VIAL. IV (03:23)
[2017-06-13] MEDS: INSULIN REGULAR 100 UNIT/ML 3ML VIAL. IV (03:55)
== END 2017-06-13 05:45 | disposition home or self-care (01) ==
LOC: ER 23:57
DX: K59.00 Constipation, unspecified (principal); E86.0 Dehydration; E11.65 Type 2 diabetes mellitus with hyperglycemia; I10 Essential (primary) hypertension
CPT/HCPCS: 36415; 74177; 80053; 81001; 83690; 85025; 96361; 96372; 96374; 96375; 99285-25; J1200; J1815; J1885; J2405; J2930; J7030; Q9967

== ENCOUNTER 2017-08-19 23:05 | Emergency (ER) | payer OTHER ==
[2017-08-19] MEDS: diazePAM 5 MG TABLET PO (23:57)
[2017-08-19] MEDS: MORPHINE SULFATE 10 MG/ML VIAL. IM (23:57)
== END 2017-08-20 00:26 | disposition home or self-care (01) ==
LOC: ER 23:05
DX: G89.29 Other chronic pain (principal); M70.61 Trochanteric bursitis, right hip; I10 Essential (primary) hypertension; E11.9 Type 2 diabetes mellitus without complications; Z91.041 Radiographic dye allergy status
CPT/HCPCS: 96372; 99283; J2270

== ENCOUNTER 2017-11-01 10:31 | Emergency (ER) | payer OTHER ==
[~2017-11-01] VITALS: Ht 167.6 cm; Wt 89.8 kg
[~2017-11-01 10:31] MED LIST changes: +AMOX500T PO; +CODE10LI PO; +DIAZ5TAB PO; +DOCU-109 PO; +FLUC150T PO; +HYDR25CA75 PO; +IBUP-1007 PO; +IBUP-1060 PO; +METF500T16 PO; -METF500T4 PO; +NAPR-514 PO; +NAPR-683 PO; -NAPR500T3 PO; +PRED50TA PO; +TRAM50TA PO; +Viscous Lidocaine 2% PO
[2017-11-01] MEDS ORDERED: ASPIRIN CHEWABLE 81 MG TABLET. PO ONE (10:45)
[2017-11-01 11:12] LABS: BASO # 0.1 x10^3/uL (0.0-0.2); BASO % 1 % (0-3); EOS # 0.1 x10^3/uL (0.0-0.7); EOS % 3 % (0-3); HEMATOCRIT 39.2 % (36.0-47.0); HEMOGLOBIN 13.5 g/dL (12.0-15.5); LYMPH # 2.1 x10^3/uL (1.0-4.8); LYMPH % 42 % (24-48); MEAN CORPUSCULAR HEMOGLOBIN 30 pg (25-35); MEAN CORPUSCULAR HGB CONC 34 g/dL (31-37); MEAN CORPUSCULAR VOLUME 89 fL (79-100); MONO # 0.3 x10^3/uL (0.0-1.1); MONO % 7 % (0-9); NEUT # 2.4 x10^3uL (1.8-7.7); NEUT % 48 % (31-73); PLATELET COUNT 292 x10^3/uL (140-400); RED BLOOD COUNT 4.43 x10^6/uL (3.50-5.40); RED CELL DISTRIBUTION WIDTH 14.7 % (11.5-14.5)
[2017-11-01] MEDS ORDERED: NITROGLYCERIN SUBLINGUAL 0.4 MG BOTTLE OF 25. SL PRN (11:15)
--- NOTE | 2017-11-01 11:17 | PHYS DOC ---
Past Medical History Past Medical History: Constipation, Depression, Diabetes-Type II, Endometriosis , Hypertension Additional Past Medical Histor: chronic back and hip pain,bacterial vaginosis, ENDOMETRIOSIS Past Surgical History: Other Additional Past Surgical Histo: TOENAIL, LEFT ARM, BREAST (L) Additional Information: QUIT SMOKING 09/2017 Alcohol Use: Occasionally Drug Use: None Adult General Chief Complaint Chief Complaint: CHEST PAIN [facility] HPI Patient is a 52 year old female who presents with complaining of chest pain. Patient with history of hypertension and diabetes mellitus and previously smoking complaining of intermittent episodes of sharp pain in substernal area for the last 9 days that usually happens several times a day as stated with exertion. The pain lasts for a few minutes with radiation to her arm and associated with shortness of breath and palpitation. Patient denies nausea, vomiting, dizziness, fever and chills, cough and congestion, injury, history of previous chest pain. Patient rated her pain 6 and 8 and states she took Tylenol 3 for her chronic back pain without change of her chest pain. Patient states she quit smoking one month ago and denies coronary heart disease by herself or in her family family. Review of Systems Review of Systems Constitutional: Denies fever or chills [] Eyes: Denies change in visual acuity, redness, or eye pain [] HENT: Denies nasal congestion or sore throat [] Respiratory: Denies cough, reports shortness of breath [] Cardiovascular: No additional information not addressed in HPI [] GI: Denies abdominal pain, nausea, vomiting, bloody stools or diarrhea [] : Denies dysuria or hematuria [] Musculoskeletal: Denies back pain or joint pain [] Integument: Denies rash or skin lesions [] Neurologic: Denies headache, focal weakness or sensory changes [] Endocrine: Denies polyuria or polydipsia [] All other systems were reviewed and found to be within normal limits, except as documented in this note. Current Medications Current Medications Current Medications Medications (Trade) Dose Ordered Sig/Fransico Start Time Stop Time Status Last Admin Dose Admin Aspirin (Children'S Aspirin) 324 mg 1X ONCE 11/01/17 10:45 11/01/17 10:48 DC 11/01/17 11:19 324 MG Ketorolac Tromethamine (Toradol 30mg Vial) 30 mg 1X ONCE 11/01/17 12:00 11/01/17 12:01 DC 11/01/17 12:04 30 MG Lorazepam (Ativan) 1 mg PRN Q4HRS PRN 11/01/17 14:30 Nitroglycerin (Nitrostat) 0.4 mg PRN Q5MIN PRN 11/01/17 11:15 11/01/17 11:36 0.4 MG Allergies Allergies Allergies Coded Allergies Type Severity Reaction Last Updated Verified Iodine and Iodide Containing Produc Allergy Intermediate itching 06/13/17 Yes Physical Exam Physical Exam Constitutional: Well developed, well nourished, mild distress, non-toxic appearance. [] HENT: Normocephalic, atraumatic, oropharynx moist, no oral exudates, nose normal. [] Eyes: PERRLA, EOMI, conjunctiva normal, no discharge. [] Neck: Normal range of motion, no tenderness, supple, no stridor. [] Cardiovascular:Heart rate regular rhythm, no murmur [] Lungs & Thorax: Bilateral breath sounds clear to auscultation, reproducible substernal pain [] Abdomen: Bowel sounds normal, soft, no tenderness, no masses, no pulsatile masses. [] Skin: Warm, dry, no erythema, no rash. [] Back: No tenderness, no CVA tenderness. [] Extremities: No tenderness, no cyanosis, no clubbing, ROM intact, no edema. [] Neurologic: Alert and oriented X 3, normal motor function, normal sensory function, no focal deficits noted. [] Psychologic: Affect anxious, judgement normal, mood normal. [] Current Patient Data Vital Signs Vital Signs Date Time Temp Pulse Resp B/P (MAP) Pulse Ox O2 Delivery O2 Flow Rate FiO2 11/01/17 11:36 81 142/83 11/01/17 10:48 98.2 20 98 Room Air 98.2 Lab Values Laboratory Tests Test 11/01/17 11:00 White Blood Count 5.0 x10^3/uL (4.0-11.0) Red Blood Count 4.43 x10^6/uL (3.50-5.40) Hemoglobin 13.5 g/dL (12.0-15.5) Hematocrit 39.2 % (36.0-47.0) Mean Corpuscular Volume 89 fL (79-100) Mean Corpuscular Hemoglobin 30 pg (25-35) Mean Corpuscular Hemoglobin Concent 34 g/dL (31-37) Red Cell Distribution Width 14.7 % (11.5-14.5) H Platelet Count 292 x10^3/uL (140-400) Neutrophils (%) (Auto) 48 % (31-73) Lymphocytes (%) (Auto) 42 % (24-48) Monocytes (%) (Auto) 7 % (0-9) Eosinophils (%) (Auto) 3 % (0-3) Basophils (%) (Auto) 1 % (0-3) Neutrophils # (Auto) 2.4 x10^3uL (1.8-7.7) Lymphocytes # (Auto) 2.1 x10^3/uL (1.0-4.8) Monocytes # (Auto) 0.3 x10^3/uL (0.0-1.1) Eosinophils # (Auto) 0.1 x10^3/uL (0.0-0.7) Basophils # (Auto) 0.1 x10^3/uL (0.0-0.2) Sodium Level 143 mmol/L (136-145) Potassium Level 3.8 mmol/L (3.5-5.1) Chloride Level 105 mmol/L (98-107) Carbon Dioxide Level 28 mmol/L (21-32) Anion Gap 10 (6-14) Blood Urea Nitrogen 15 mg/dL (7-20) Creatinine 0.6 mg/dL (0.6-1.0) Estimated GFR (Cockcroft-Gault) 126.1 BUN/Creatinine Ratio 25 (6-20) H Glucose Level 312 mg/dL (70-99) H Calcium Level 9.4 mg/dL (8.5-10.1) Magnesium Level 1.5 mg/dL (1.8-2.4) L Total Bilirubin 0.2 mg/dL (0.2-1.0) Aspartate Amino Transferase (AST) 17 U/L (15-37) Alanine Aminotransferase (ALT) 39 U/L (14-59) Alkaline Phosphatase 104 U/L (46-116) Creatine Kinase 94 U/L (26-192) Troponin I Quantitative < 0.017 ng/mL (0.000-0.055) NN-Wjd-S-Type Natriuretic Peptide 69 pg/mL (0-124) Total Protein 6.8 g/dL (6.4-8.2) Albumin 3.2 g/dL (3.4-5.0) L Albumin/Globulin Ratio 0.9 (1.0-1.7) L Lipase 119 U/L (73-393) Laboratory Tests 11/01/17 11:00 Laboratory Tests 11/01/17 11:00 EKG EKG EKG interpreted by me. EKG at 1038 showed normal sinus rhythm at rate of 89, leftward axis, no ST and T-wave abnormalities. Radiology/Procedures Radiology/Procedures [facility] [address] [place] [address] IMAGING REPORT Signed PATIENT: JORDON OSORIO ACCOUNT: [id number] : 1965 LOCATION: ER AGE: 52 SEX: F EXAM STATUS: REG ER ORD. PHYSICIAN: TIERA AWAN MD REASON: epigastric pain PROCEDURE: ABDOMEN LTD Right upper quadrant abdominal ultrasound, 11/01/2017: HISTORY: Epigastric pain The gallbladder is within normal limits in size. There is no sonographic evidence of cholelithiasis. The gallbladder lopez are not thickened. The common hepatic duct measures 6 mm which is at the upper limits of normal. No intrahepatic bile duct dilatation or mass is seen. The pancreas was largely obscured by overlying bowel. Limited views of the right kidney are unremarkable. IMPRESSION: No significant gallbladder abnormality is detected. Electronically signed by: Keshav Hanson MD (11/01/2017 2:19 PM) [facility] DICTATED and SIGNED BY: KESHAV HANSON MD DATE: 11/01/17 1416 [facility] [address] [place] [address] IMAGING REPORT Signed PATIENT: JORDON OSORIO ACCOUNT: [id number] : 1965 LOCATION: ER AGE: 52 SEX: F EXAM STATUS: REG ER ORD. PHYSICIAN: TIERA AWAN MD REASON: chest pain PROCEDURE: PORTABLE CHEST 1V EXAM: Chest, single view. HISTORY: Shortness of breath. COMPARISON: 03/21/2016 FINDINGS: A frontal view of the chest is obtained. There is no infiltrate, pleural effusion or pneumothorax. The heart is normal in size. There is calcification at the left rotator cuff insertion along the left greater tuberosity. IMPRESSION: No acute pulmonary finding. Electronically signed by: Lucille Pedroza MD (11/01/2017 11:47 AM) [facility] DICTATED and SIGNED BY: LUCILLE PEDROZA MD DATE: 11/01/17 1146 Course & Med Decision Making Course & Med Decision Making Pertinent Labs and Imaging studies reviewed. (See chart for details) Evaluation of patient in ER showed 52-year-old female patient with complaining of intermittent episodes of substernal chest pain for more than one week that usually happen with activity. Patient had reproducible chest wall pain and anxiety. Patient had unremarkable labs except for elevation of blood sugar at 312. Patient treated with aspirin, nitroglycerin, Proventil and Atrovent and her pain improved. Plan discharge patient home with diagnosis of musculoskeletal chest pain and instruction to follow with her primary care physician and take diabetic diet. Dragon Disclaimer Dragon Disclaimer This electronic medical record was generated, in whole or in part, using a voice recognition dictation system. Departure Departure Impression: Primary Impression: Musculoskeletal chest pain Additional Impressions: Anxiety Uncontrolled diabetes mellitus Disposition: 01 HOME, SELF-CARE Condition: IMPROVED Referrals: MARTHA CASTANO (PCP) Patient Instructions: Chest Wall Pain Additional Instructions: Drink plenty of liquids Follow-up with your primary care physician in 3-5 days Return to ER if not getting better Scripts Tramadol Hcl (ULTRAM) 50 Mg Tablet 50 MG PO Q6HRS PRN for PAIN, #20 TAB 0 Refills Prov: TIERA AWAN MD 11/01/17 Cyclobenzaprine Hcl (CYCLOBENZAPRINE HCL) 10 Mg Tablet 1 TAB PO TID, #30 TAB Prov: TIERA AWAN MD 11/01/17 Problem Qualifiers TIERA AWAN MD Nov 01, 2017 11:17
--- NOTE | 2017-11-01 11:23 | EKG ---
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
[2017-11-01 11:32] LABS: CALCIUM 9.4 mg/dL (8.5-10.1); CREATININE 0.6 mg/dL (0.6-1.0); GFR 126.1; POTASSIUM 3.8 mmol/L (3.5-5.1)
[2017-11-01 11:41] LABS: ALBUMIN 3.2 g/dL (3.4-5.0); ALBUMIN/GLOBULIN RATIO 0.9 (1.0-1.7); MAGNESIUM 1.5 mg/dL (1.8-2.4); TOTAL BILIRUBIN 0.2 mg/dL (0.2-1.0); TOTAL PROTEIN 6.8 g/dL (6.4-8.2)
--- NOTE | 2017-11-01 11:50 | RAD ---
EXAM: Chest, single view. HISTORY: Shortness of breath. COMPARISON: 03/21/2016 FINDINGS: A frontal view of the chest is obtained. There is no infiltrate, pleural effusion or pneumothorax. The heart is normal in size. There is calcification at the left rotator cuff insertion along the left greater tuberosity. IMPRESSION: No acute pulmonary finding. Electronically signed by: Lucille Kirk MD (11/01/2017 11:47 AM) [facility]
[2017-11-01] MEDS ORDERED: KETOROLAC 30 MG/ML VIAL. IV ONE (12:00)
--- NOTE | 2017-11-01 14:22 | RAD ---
Right upper quadrant abdominal ultrasound, 11/01/2017: HISTORY: Epigastric pain The gallbladder is within normal limits in size. There is no sonographic evidence of cholelithiasis. The gallbladder lopez are not thickened. The common hepatic duct measures 6 mm which is at the upper limits of normal. No intrahepatic bile duct dilatation or mass is seen. The pancreas was largely obscured by overlying bowel. Limited views of the right kidney are unremarkable. IMPRESSION: No significant gallbladder abnormality is detected. Electronically signed by: Keshav Hanson MD (11/01/2017 2:19 PM) [facility]
[2017-11-01] MEDS ORDERED: TRAM-48 PO (14:29)
[2017-11-01] MEDS ORDERED: CYCL10TA2 PO (14:29)
[2017-11-01 14:30] VITALS: BP 151/86
== END 2017-11-01 14:51 | disposition home or self-care (01) ==
LOC: ER 10:31
DX: R07.2 Precordial pain (principal); E11.65 Type 2 diabetes mellitus with hyperglycemia; F41.9 Anxiety disorder, unspecified; I10 Essential (primary) hypertension; G89.29 Other chronic pain; Z87.891 Personal history of nicotine dependence; Z91.041 Radiographic dye allergy status
CPT/HCPCS: 36415; 71045; 76705; 80053; 82550; 83690; 83735; 83880; 84484; 85025; 93005; 96374; 99285; J1885

== ENCOUNTER 2017-12-01 13:58 | Emergency (ER) | payer OTHER ==
[~2017-12-01] VITALS: Ht 162.6 cm; Wt 89.8 kg
[~2017-12-01 13:58] MED LIST changes: +TRAM-48 PO
[2017-12-01 14:29] VITALS: BP 137/73
[2017-12-01 15:05] LABS: BILIRUBIN,URINE NEGATIVE (NEG); CLARITY,URINE CLEAR; COLOR,URINE YELLOW; NITRITE,URINE NEGATIVE (NEG); PH,URINE 5.5; PROTEIN,URINE 30 mg/dL (NEG-TRACE); UROBILINOGEN,URINE 0.2 mg/dL (0.2 mg/dL)
--- NOTE | 2017-12-01 15:12 | RAD ---
CHEST PA LATERAL History: CHEST TIGHTNESS SINCE 11/25/17, SOA, WEAKNESS. Comparison: 11/01/2017 Heart size: Within normal limits. Christiane/mediastinum: Within normal limits Lungs: No focal airspace consolidation. Pleura: No evidence of pleural effusion. Pneumothorax: None visualized Bones: Regional skeleton appears grossly intact. Miscellaneous: None Impression: No acute radiographic findings. Electronically signed by: Fabrice Underwood MD (12/01/2017 3:09 PM) [facility]
[2017-12-01 15:23] LABS: BACTERIA,URINE MODERATE /HPF (0-FEW); RBC,URINE 0 /HPF (0-2); SQUAMOUS EPITHELIAL CELL,UR MOD /LPF; WBC,URINE OCC /HPF (0-4)
[2017-12-01 15:24] LABS: INFLUENZA A PATIENT NEGATIVE (NEGATIVE); INFLUENZA B PATIENT NEGATIVE (NEGATIVE)
[2017-12-01] MEDS ORDERED: CEPH-264 PO (16:15)
--- NOTE | 2017-12-01 21:57 | PHYS DOC ---
Past Medical History Past Medical History: Constipation, Depression, Diabetes-Type II, Endometriosis , Hypertension Additional Past Medical Histor: chronic back and hip pain,bacterial vaginosis, ENDOMETRIOSIS Past Surgical History: Other Additional Past Surgical Histo: TOENAIL, LEFT ARM, BREAST (L) Alcohol Use: Occasionally Drug Use: None Adult General Chief Complaint Chief Complaint: SHORTNESS OF BREATH HPI HPI Patient is a 52 year old female who presents with increased fatigue, and dry cough for the past several days and recent upper respiratory tract infection. Patient states she was treated by her PCP 1 week ago and placed on promethazine and Solu-Medrol for upper respiratory tract symptoms. Patient states she feels dizzy after taking promethazine. She denies fever, chills, nausea, vomiting or sweats. Reports some dizziness initially upon standing. Denies chest pain palpitations, shortness of breath, no urinary frequency urgency. No other acute symptoms or complaints. Patient states she did have outpatient labs performed 1 week ago but was unaware of the results. She has not follow-up with her primary care provider for repeat evaluation. [] Review of Systems Review of Systems ROS as per HPI All other systems were reviewed and found to be within normal limits, except as documented in this note. Allergies Allergies Allergies Coded Allergies Type Severity Reaction Last Updated Verified Iodine and Iodide Containing Produc Allergy Intermediate itching 06/13/17 Yes Physical Exam Physical Exam Constitutional: Well developed, well nourished, no acute distress, non-toxic appearance. [] HENT: Normocephalic, atraumatic, bilateral external ears normal, oropharynx moist, no oral exudates, nose normal. [] Eyes: PERRLA, EOMI, conjunctiva normal, no discharge. [] Neck: Normal range of motion, no tenderness, supple, no stridor. [] Cardiovascular:Heart rate regular rhythm, no murmur [] Lungs & Thorax: Bilateral breath sounds clear to auscultation [] Abdomen: Bowel sounds normal, soft, no tenderness, no masses, no pulsatile masses. [] Skin: Warm, dry, no erythema, no rash. [] Back: No tenderness, no CVA tenderness. [] Extremities: No tenderness, no cyanosis, no clubbing, ROM intact, no edema. [] Neurologic: Alert and oriented X 3, normal motor function, normal sensory function, no focal deficits noted. [] Psychologic: Affect normal, judgement normal, mood normal. [] Current Patient Data Vital Signs Vital Signs Date Time Temp Pulse Resp B/P (MAP) Pulse Ox O2 Delivery O2 Flow Rate FiO2 12/01/17 14:29 98.0 88 18 137/73 (94) 98 Room Air 98.0 Lab Values Laboratory Tests Test 12/01/17 14:40 12/01/17 16:08 Urine Color Yellow Urine Clarity Clear Urine pH 5.5 Urine Specific [place] >=1.030 Urine Protein 30 mg/dL (NEG-TRACE) Urine Glucose (UA) >=1000 mg/dL (NEG) Urine Ketones (Stick) Negative mg/dL (NEG) Urine Blood Negative (NEG) Urine Nitrite Negative (NEG) Urine Bilirubin Negative (NEG) Urine Urobilinogen Dipstick 0.2 mg/dL (0.2 mg/dL) Urine Leukocyte Esterase Negative (NEG) Urine RBC 0 /HPF (0-2) Urine WBC Occ /HPF (0-4) Urine Squamous Epithelial Cells Mod /LPF Urine Bacteria Moderate /HPF (0-FEW) Urine Mucus Mod /LPF Influenza Type A Antigen Negative (NEGATIVE) Influenza Type B Antigen Negative (NEGATIVE) Glucose (Fingerstick) 410 mg/dL (70-99) H EKG EKG [] Radiology/Procedures Radiology/Procedures [X-ray: No acute cardiopulmonary disease per radiology report] Course & Med Decision Making Course & Med Decision Making Pertinent Labs and Imaging studies reviewed. (See chart for details) [Patient blood sugar noted to be elevated rated and 400 likely secondary to concurrent steroid use. Will discontinue Solu-Medrol, I patient increase fluids and take antibiotics for cough. Patient stable at all signs in the emergency department is minimally symptomatic. Recommend close PCP follow-up in the next 1 -2 days. Return precautions reviewed. Patient verbalizes understanding agreement discharge instructions prior to discharge] Dragon Disclaimer Dragon Disclaimer This electronic medical record was generated, in whole or in part, using a voice recognition dictation system. Departure Departure Impression: Primary Impression: Dehydration Additional Impressions: Hyperglycemia Pharyngitis Disposition: 01 HOME, SELF-CARE Condition: STABLE Patient Instructions: Dehydration, Adult, [id number], Hyperglycemia, Easy-to- Read Additional Instructions: Please discontinue Medrol Dosepak, increase fluids, drinking 2 L of sugar-free Gatorade or Powerade daily for the next 2 days. Continue home diabetic medications and take antibiotics as directed. Follow-up with your PCP in 1-2 days for reevaluation.. Scripts Cephalexin (KEFLEX) 500 Mg Capsule 1 CAP PO TID, #21 CAP Prov: CHARLENE GREENE DO 12/01/17 Problem Qualifiers CHARLENE GREENE DO Dec 01, 2017 21:57
== END 2017-12-01 16:25 | disposition home or self-care (01) ==
LOC: ER 13:58
DX: E86.0 Dehydration (principal); J02.9 Acute pharyngitis, unspecified; E11.65 Type 2 diabetes mellitus with hyperglycemia; I10 Essential (primary) hypertension; G89.29 Other chronic pain; M54.9 Dorsalgia, unspecified; Z91.041 Radiographic dye allergy status
CPT/HCPCS: 71046; 81001; 82962; 87086; 87804; 99285

== ENCOUNTER 2018-02-18 16:30 | Emergency (ER) | payer OTHER ==
[~2018-02-18] VITALS: Ht 167.6 cm; Wt 95.3 kg
[~2018-02-18 16:30] MED LIST changes: +ALBU2.5V8 INH; +CEPH-264 PO; +HYDR-3135 PO; +HYDR-3164 PO; -HYDR-963 PO; -HYDR-971 PO; -PROAIR HFA8.5 GM INH
[2018-02-18 17:10] VITALS: BP 143/89
[2018-02-18 17:30] LABS: BILIRUBIN,URINE NEGATIVE (NEG); CLARITY,URINE CLEAR; COLOR,URINE YELLOW; NITRITE,URINE NEGATIVE (NEG); PROTEIN,URINE 100 mg/dL (NEG-TRACE)
[2018-02-18] MEDS ORDERED: IBUPROFEN 600 MG TABLET. PO ONE (17:30)
[2018-02-18] MEDS ORDERED: HYDROcodone/APAP 5/325MG 1 TAB TABLET PO ONE (17:30)
[2018-02-18] MEDS ORDERED: CYCLOBENZAPRINE 10 MG TABLET. PO ONE (17:30)
[2018-02-18 17:36] LABS: SQUAMOUS EPITHELIAL CELL,UR MOD /LPF
[2018-02-18 17:37] LABS: BACTERIA,URINE MODERATE /HPF (0-FEW); RBC,URINE 0 /HPF (0-2); WBC,URINE OCC /HPF (0-4); YEAST,URINE PRESENT /HPF
[2018-02-18 18:00] LABS: INFLUENZA A PATIENT NEGATIVE (NEGATIVE); INFLUENZA B PATIENT NEGATIVE (NEGATIVE)
[2018-02-18] MEDS ORDERED: KETOROLAC 30 MG/ML VIAL. IM ONE (18:45)
[2018-02-18] MEDS ORDERED: DICL50TA4 PO (18:52)
[2018-02-18] MEDS ORDERED: AMOX875T PO (18:52)
[2018-02-18] MEDS ORDERED: CYCL10TA2 PO (18:52)
--- NOTE | 2018-02-18 18:52 | PHYS DOC ---
Past Medical History Past Medical History: Constipation, Depression, Diabetes-Type II, Endometriosis , Hypertension Additional Past Medical Histor: chronic back and hip pain,bacterial vaginosis, ENDOMETRIOSIS Past Surgical History: Other Additional Past Surgical Histo: TOENAIL, LEFT ARM, BREAST (L) Alcohol Use: Occasionally Drug Use: None Adult General Chief Complaint Chief Complaint: GENERALIZED BODY ACHES HPI HPI Patient is a 52 year old female with history of diabetes, hypertension, who presents today complaining of moderate left ear pain that has been going on since this morning. Patient denies any fever coughing or congestion. She is also complaining of body aches and chronic low back pain. Denies any known injury. Rates the back pain as mild, denies the pain radiating to bilateral lower extremities. Denies any loss of bowel bladder function. Denies any numbness or tingling to bilateral lower extremities. 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 Review of Systems Review of Systems Constitutional: Reports body aches Denies fever or chills [] Eyes: Denies change in visual acuity, redness, or eye pain [] HENT: Reports left ear pain. Denies nasal congestion or sore throat [] Respiratory: Denies cough or shortness of breath [] Cardiovascular: No additional information not addressed in HPI [] GI: Denies abdominal pain, nausea, vomiting, bloody stools or diarrhea [] : Denies dysuria or hematuria [] Musculoskeletal: Reports low back pain Integument: Denies rash or skin lesions [] Neurologic: Denies headache, focal weakness or sensory changes [] All other systems were reviewed and found to be within normal limits, except as documented in this note. Current Medications Current Medications Current Medications Medications (Trade) Dose Ordered Sig/Fransico Start Time Stop Time Status Last Admin Dose Admin Acetaminophen/ Hydrocodone Bitart (Lortab 5/325) 2 tab 1X ONCE 02/18/18 17:30 02/18/18 17:31 DC 02/18/18 17:36 2 TAB Cyclobenzaprine HCl (Flexeril) 10 mg 1X ONCE 02/18/18 17:30 02/18/18 17:31 DC 02/18/18 17:36 10 MG Ibuprofen (Motrin) 600 mg 1X ONCE 02/18/18 17:30 02/18/18 17:31 DC 02/18/18 17:36 600 MG Ketorolac Tromethamine (Toradol 30mg Vial) 30 mg 1X ONCE 02/18/18 18:45 02/18/18 18:47 DC 02/18/18 18:53 30 MG Allergies Allergies Allergies Coded Allergies Type Severity Reaction Last Updated Verified Iodine and Iodide Containing Produc Allergy Intermediate itching 06/13/17 Yes Physical Exam Physical Exam Constitutional: Well developed, well nourished, no acute distress, non-toxic appearance. [] HENT: Normocephalic, atraumatic, bilateral external ears normal, oropharynx moist, no oral exudates, nose normal. Left TM is moderately injected, no effusion. Eyes: PERRLA, EOMI, conjunctiva normal, no discharge. [] Neck: Normal range of motion, no tenderness, supple, no stridor. [] Cardiovascular:Heart rate regular rhythm, no murmur [] Lungs & Thorax: Bilateral breath sounds clear to auscultation [] Abdomen: Bowel sounds normal, soft, no tenderness, no masses, no pulsatile masses. [] Skin: Warm, dry, no erythema, no rash. [] Back: No tenderness, no CVA tenderness. [] Extremities: No tenderness, no cyanosis, no clubbing, ROM intact, no edema. [] Neurologic: Alert and oriented X 3, normal motor function, normal sensory function, no focal deficits noted. [] Psychologic: Affect normal, judgement normal, mood normal. [] Current Patient Data Vital Signs Vital Signs Date Time Temp Pulse Resp B/P (MAP) Pulse Ox O2 Delivery O2 Flow Rate FiO2 02/18/18 17:10 98.5 103 20 143/89 (107) 98 Room Air 98.5 Lab Values Laboratory Tests Test 02/18/18 17:10 02/18/18 17:25 Urine Collection Type Unknown Urine Color Yellow Urine Clarity Clear Urine pH 6.0 Urine Specific [place] 1.025 Urine Protein 100 mg/dL (NEG-TRACE) Urine Glucose (UA) >=1000 mg/dL (NEG) Urine Ketones (Stick) Negative mg/dL (NEG) Urine Blood Negative (NEG) Urine Nitrite Negative (NEG) Urine Bilirubin Negative (NEG) Urine Urobilinogen Dipstick 1.0 mg/dL (0.2 mg/dL) Urine Leukocyte Esterase Negative (NEG) Urine RBC 0 /HPF (0-2) Urine WBC Occ /HPF (0-4) Urine Squamous Epithelial Cells Mod /LPF Urine Bacteria Moderate /HPF (0-FEW) Urine Mucus Mod /LPF Urine Yeast Present /HPF Influenza Type A Antigen Negative (NEGATIVE) Influenza Type B Antigen Negative (NEGATIVE) EKG EKG [] Radiology/Procedures Radiology/Procedures [] Course & Med Decision Making Course & Med Decision Making Pertinent Labs and Imaging studies reviewed. (See chart for details) This is a 52-year-old female patient presented to the ED today with body aches, left ear pain and low back pain. No known injury. 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 Positive for left otitis media. Will be discharged with amoxicillin. Cyclobenzaprine and diclofenac for pain. Follow-up with PCP in 1-2 weeks. Staff Physician Addendum: I was working in the ER during the course of this patient's visit. I was available for consultation as needed, but I was not directly involved in the care of this patient. Dragon Disclaimer Dragon Disclaimer This electronic medical record was generated, in whole or in part, using a voice recognition dictation system. Departure Departure Impression: Primary Impression: Otitis media Additional Impressions: Back pain Body aches Disposition: 01 HOME, SELF-CARE Condition: STABLE Referrals: MARTHA CASTANO (PCP) Follow-up in 1-2 weeks Patient Instructions: Back Pain, Adult, Otitis Media, Adult Additional Instructions: You were evaluated in the emergency room and noted to have left ear infection. We put you on antibiotics, ensure you complete them. Take the prescribed pain medicine as needed for pain. Follow-up with your own doctor in 1-2 weeks. Scripts Amoxicillin (AMOXICILLIN) 875 Mg Tablet 1 TAB PO BID, #20 TAB Prov: IVON HARDIN GREASE BUFFER 02/18/18 Diclofenac Sodium (DICLOFENAC SODIUM) 50 Mg Tablet. 1 TAB PO BID, #20 TAB 0 Refills Prov: IVON HARDIN GREASE BUFFER 02/18/18 Cyclobenzaprine Hcl (CYCLOBENZAPRINE HCL) 10 Mg Tablet 1 TAB PO TID, #30 TAB Prov: IVON HARDIN GREASE BUFFER 02/18/18 Problem Qualifiers Primary Impression: Otitis media Otitis media type: other nonsuppurative Chronicity: acute Laterality: bilateral Recurrence: non-recurrent Qualified Codes: H65.193 - Other acute nonsuppurative otitis media, bilateral Additional Impressions: Back pain Back pain location: low back pain Chronicity: chronic Back pain laterality : bilateral Sciatica presence: without sciatica Qualified Codes: M54.5 - Low back pain; G89.29 - Other chronic pain IVON HARDIN APRN Feb 18, 2018 18:52 ADRY JIMENEZ MD Feb 18, 2018 20:46
== END 2018-02-18 18:58 | disposition home or self-care (01) ==
LOC: ER 16:30
DX: H65.193 Other acute nonsuppurative otitis media, bilateral (principal); G89.29 Other chronic pain; M54.5 Low back pain; M79.10 Myalgia, unspecified site; I10 Essential (primary) hypertension; E11.9 Type 2 diabetes mellitus without complications; Z91.041 Radiographic dye allergy status
CPT/HCPCS: 81001; 87086; 87804; 96372; 99284; J1885

== ENCOUNTER 2018-03-15 09:31 | Emergency (ER) | payer OTHER ==
[~2018-03-15] VITALS: Ht 167.6 cm; Wt 95.3 kg
[~2018-03-15 09:31] MED LIST changes: +AMOX875T PO; +DICL50TA4 PO
--- NOTE | 2018-03-15 09:41 | PHYS DOC ---
Past Medical History Past Medical History: Constipation, Depression, Diabetes-Type II, Endometriosis , Hypertension Additional Past Medical Histor: chronic back and hip pain,bacterial vaginosis, ENDOMETRIOSIS Past Surgical History: Other Additional Past Surgical Histo: TOENAIL, LEFT ARM, BREAST (L) Alcohol Use: Occasionally Drug Use: None Adult General Chief Complaint Chief Complaint: ABDOMINAL PAIN HPI HPI Patient is a 52 year old female presents for evaluation of diarrhea that started overnight. She reports "bubbly sensation in my abdomen". Denies any fevers or vomiting. States she was treated for ear infections couple weeks ago, still has pain in the right ear. She has had some sinus congestion as well. Review of Systems Review of Systems Constitutional: Denies fever or chills [] Eyes: Denies change in visual acuity, redness, or eye pain [] HENT: Reports sinus congestion or sore throat, reports ear pain [] Respiratory: Denies cough or shortness of breath [] Cardiovascular: No additional information not addressed in HPI [] GI: Denies abdominal pain, nausea, vomiting, bloody stools , reports diarrhea [] : Denies dysuria or hematuria [] Musculoskeletal: Denies back pain or joint pain [] Integument: Denies rash or skin lesions [] Neurologic: Denies headache, focal weakness or sensory changes [] Endocrine: Denies polyuria or polydipsia [] All other systems were reviewed and found to be within normal limits, except as documented in this note. Current Medications Current Medications Current Medications Medications (Trade) Dose Ordered Sig/Fransico Start Time Stop Time Status Last Admin Dose Admin Dicyclomine HCl (Bentyl) 20 mg 1X ONCE 03/15/18 10:15 03/15/18 10:16 DC 03/15/18 10:15 20 MG Ketorolac Tromethamine (Toradol 15mg Vial) 15 mg 1X ONCE 03/15/18 11:45 03/15/18 11:46 DC 03/15/18 11:41 15 MG Ondansetron HCl (Zofran) 4 mg 1X ONCE 03/15/18 10:15 03/15/18 10:16 DC 03/15/18 10:23 4 MG Sodium Chloride 1,000 ml @ 1,000 mls/hr 1X ONCE 03/15/18 10:15 03/15/18 11:14 DC 03/15/18 10:23 1,000 MLS/HR Allergies Allergies Allergies Coded Allergies Type Severity Reaction Last Updated Verified Iodine and Iodide Containing Produc Allergy Intermediate itching 06/13/17 Yes Physical Exam Physical Exam Constitutional: Well developed, well nourished, no acute distress, non-toxic appearance. [] HENT: Normocephalic, atraumatic, left TM normal, cerumen impaction in right ear , oropharynx moist, no oral exudates, nose normal. [] Neck: Normal range of motion, no tenderness, supple, no stridor. [] Cardiovascular:Heart rate regular rhythm, no murmur [] Lungs & Thorax: Bilateral breath sounds clear to auscultation [] Abdomen: Bowel sounds normal, soft, no tenderness, no masses, no pulsatile masses. [] Skin: Warm, dry, no erythema, no rash. [] Neurologic: Alert and oriented X 3, normal motor function, normal sensory function, no focal deficits noted. [] Psychologic: Affect normal, judgement normal, mood normal. [] Current Patient Data Vital Signs Vital Signs Date Time Temp Pulse Resp B/P (MAP) Pulse Ox O2 Delivery O2 Flow Rate FiO2 03/15/18 09:48 97.7 109 18 136/86 (103) 99 Room Air 97.7 Lab Values Laboratory Tests Test 03/15/18 09:38 03/15/18 10:20 Urine Collection Type Unknown Urine Color Yellow Urine Clarity Clear Urine pH 5.5 Urine Specific [place] >=1.030 Urine Protein 100 mg/dL (NEG-TRACE) Urine Glucose (UA) >=1000 mg/dL (NEG) Urine Ketones (Stick) Trace mg/dL (NEG) Urine Blood Negative (NEG) Urine Nitrite Negative (NEG) Urine Bilirubin Negative (NEG) Urine Urobilinogen Dipstick 0.2 mg/dL (0.2 mg/dL) Urine Leukocyte Esterase Negative (NEG) Urine RBC 0 /HPF (0-2) Urine WBC Rare /HPF (0-4) Urine Squamous Epithelial Cells Many /LPF Urine Bacteria Many /HPF (0-FEW) Urine Yeast Present /HPF White Blood Count 8.9 x10^3/uL (4.0-11.0) Red Blood Count 5.08 x10^6/uL (3.50-5.40) Hemoglobin 15.0 g/dL (12.0-15.5) Hematocrit 45.4 % (36.0-47.0) Mean Corpuscular Volume 90 fL (79-100) Mean Corpuscular Hemoglobin 30 pg (25-35) Mean Corpuscular Hemoglobin Concent 33 g/dL (31-37) Red Cell Distribution Width 14.2 % (11.5-14.5) Platelet Count 368 x10^3/uL (140-400) Neutrophils (%) (Auto) 70 % (31-73) Lymphocytes (%) (Auto) 22 % (24-48) L Monocytes (%) (Auto) 6 % (0-9) Eosinophils (%) (Auto) 1 % (0-3) Basophils (%) (Auto) 1 % (0-3) Neutrophils # (Auto) 6.2 x10^3uL (1.8-7.7) Lymphocytes # (Auto) 1.9 x10^3/uL (1.0-4.8) Monocytes # (Auto) 0.6 x10^3/uL (0.0-1.1) Eosinophils # (Auto) 0.1 x10^3/uL (0.0-0.7) Basophils # (Auto) 0.0 x10^3/uL (0.0-0.2) Sodium Level 136 mmol/L (136-145) Potassium Level 4.6 mmol/L (3.5-5.1) Chloride Level 100 mmol/L (98-107) Carbon Dioxide Level 24 mmol/L (21-32) Anion Gap 12 (6-14) Blood Urea Nitrogen 15 mg/dL (7-20) Creatinine 0.7 mg/dL (0.6-1.0) Estimated GFR (Cockcroft-Gault) 105.5 BUN/Creatinine Ratio 21 (6-20) H Glucose Level 366 mg/dL (70-99) H Calcium Level 9.8 mg/dL (8.5-10.1) Total Bilirubin 0.3 mg/dL (0.2-1.0) Aspartate Amino Transferase (AST) 15 U/L (15-37) Alanine Aminotransferase (ALT) 38 U/L (14-59) Alkaline Phosphatase 111 U/L (46-116) Total Protein 7.7 g/dL (6.4-8.2) Albumin 3.5 g/dL (3.4-5.0) Albumin/Globulin Ratio 0.8 (1.0-1.7) L Lipase 82 U/L (73-393) Laboratory Tests 03/15/18 10:20 Laboratory Tests 03/15/18 10:20 EKG EKG [] Radiology/Procedures Radiology/Procedures [] Course & Med Decision Making Course & Med Decision Making Pertinent Labs and Imaging studies reviewed. (See chart for details) []Vital signs stable, patient is afebrile and nontoxic in appearance, labs within normal limits, elevate glucose is noted, patient is diabetic. The right ear was irrigated, TM is normal on reexamination. Recommend she follow up with her primary care doctor this week. Dragon Disclaimer Dragon Disclaimer This electronic medical record was generated, in whole or in part, using a voice recognition dictation system. Departure Departure Impression: Primary Impression: Cerumen impaction Additional Impression: Diarrhea Disposition: HOME, SELF-CARE Condition: STABLE Referrals: MARTHA CASTANO SHEET TAKER (PCP) Patient Instructions: Cerumen Impaction, Diarrhea Scripts Ondansetron Hcl (ZOFRAN) 4 Mg Tablet 1 TAB PO Q6HRS, #20 TAB Prov: LIANET WILHELM APRN 03/15/18 Problem Qualifiers LIANET WILHELM APRN Mar 15, 2018 09:41
[2018-03-15 10:07] LABS: BILIRUBIN,URINE NEGATIVE (NEG); CLARITY,URINE CLEAR; COLOR,URINE YELLOW; NITRITE,URINE NEGATIVE (NEG); PH,URINE 5.5; PROTEIN,URINE 100 mg/dL (NEG-TRACE); UROBILINOGEN,URINE 0.2 mg/dL (0.2 mg/dL)
[2018-03-15] MEDS ORDERED: IV NORMAL SALINE 1000ML BAG 1,000 ML IV ONE (10:15)
[2018-03-15] MEDS ORDERED: ONDANSETRON PF 4 MG/2 ML VIAL. IV ONE (10:15)
[2018-03-15] MEDS ORDERED: DICYCLOMINE 20 MG/2 ML AMPUL. IM ONE (10:15)
[2018-03-15 10:25] LABS: BACTERIA,URINE MANY /HPF (0-FEW); RBC,URINE 0 /HPF (0-2); SQUAMOUS EPITHELIAL CELL,UR MANY /LPF; WBC,URINE RARE /HPF (0-4); YEAST,URINE PRESENT /HPF
[2018-03-15 10:39] LABS: BASO % 1 % (0-3); EOS # 0.1 x10^3/uL (0.0-0.7); EOS % 1 % (0-3); HEMATOCRIT 45.4 % (36.0-47.0); LYMPH # 1.9 x10^3/uL (1.0-4.8); LYMPH % 22 % (24-48); MEAN CORPUSCULAR HEMOGLOBIN 30 pg (25-35); MEAN CORPUSCULAR HGB CONC 33 g/dL (31-37); MEAN CORPUSCULAR VOLUME 90 fL (79-100); MONO # 0.6 x10^3/uL (0.0-1.1); MONO % 6 % (0-9); NEUT # 6.2 x10^3uL (1.8-7.7); NEUT % 70 % (31-73); PLATELET COUNT 368 x10^3/uL (140-400); RED BLOOD COUNT 5.08 x10^6/uL (3.50-5.40); RED CELL DISTRIBUTION WIDTH 14.2 % (11.5-14.5); WHITE BLOOD COUNT 8.9 x10^3/uL (4.0-11.0)
[2018-03-15 10:47] LABS: CALCIUM 9.8 mg/dL (8.5-10.1); CREATININE 0.7 mg/dL (0.6-1.0); GFR 105.5; POTASSIUM 4.6 mmol/L (3.5-5.1)
[2018-03-15 10:54] LABS: ALBUMIN 3.5 g/dL (3.4-5.0); ALBUMIN/GLOBULIN RATIO 0.8 (1.0-1.7); TOTAL BILIRUBIN 0.3 mg/dL (0.2-1.0); TOTAL PROTEIN 7.7 g/dL (6.4-8.2)
[2018-03-15 11:30] VITALS: BP 134/86
[2018-03-15] MEDS ORDERED: ONDA4TAB7 PO (11:39)
[2018-03-15] MEDS ORDERED: KETOROLAC 15 MG/ML VIAL. IV ONE (11:45)
== END 2018-03-15 12:11 | disposition home or self-care (01) ==
LOC: ER 09:31
DX: H61.21 Impacted cerumen, right ear (principal); R19.7 Diarrhea, unspecified; E11.9 Type 2 diabetes mellitus without complications; I10 Essential (primary) hypertension; G89.29 Other chronic pain; Z91.041 Radiographic dye allergy status
CPT/HCPCS: 36415; 69209; 80053; 81001; 83690; 85025; 87086; 96361; 96372; 96374; 96375; 99283; J0500; J1885; J2405; J7030

== ENCOUNTER 2018-04-18 10:01 | Emergency (ER) | payer OTHER ==
[~2018-04-18] VITALS: Ht 167.6 cm; Wt 92.5 kg
[~2018-04-18 10:01] MED LIST changes: +ONDA4TAB7 PO
--- NOTE | 2018-04-18 10:39 | PHYS DOC ---
Past Medical History Past Medical History: Depression, Diabetes-Type II, Endometriosis, Hypertension Additional Past Medical Histor: chronic back and hip pain,bacterial vaginosis, ENDOMETRIOSIS Past Surgical History: Other Additional Past Surgical Histo: TOENAIL, LEFT ARM, BREAST (L) Alcohol Use: Occasionally Drug Use: None Adult General Chief Complaint Chief Complaint: DIZZY/LIGHT HEADED HPI HPI Patient is a 52 year old female who presents with dizziness. She felt an odd sensation in both lower legs that traveled from her toes up to her calves. This lasted several seconds. This was followed subsequently by lightheadedness and dizziness that lasted several minutes. This seems to be doing better now but still persists. Patient denies any chest pain or palpitations. Denies any unilateral weakness. Reports being able to walk without any difficulty.[] Review of Systems Review of Systems Constitutional: Denies fever or chills [] Eyes: Denies change in visual acuity, redness, or eye pain [] HENT: Denies nasal congestion or sore throat [] Respiratory: Denies cough or shortness of breath [] Cardiovascular: No chest pain or palpitations[] GI: Denies abdominal pain, nausea, vomiting, bloody stools or diarrhea [] : Denies dysuria or hematuria [] Musculoskeletal: Denies back pain or joint pain [] Integument: Denies rash or skin lesions [] Neurologic: Denies headache, focal weakness or sensory changes [] Endocrine: Denies polyuria or polydipsia [] All other systems were reviewed and found to be within normal limits, except as documented in this note. Allergies Allergies Allergies Coded Allergies Type Severity Reaction Last Updated Verified Iodine and Iodide Containing Produc Allergy Intermediate itching 06/13/17 Yes Physical Exam Physical Exam Constitutional: Well developed, well nourished, no acute distress, non-toxic appearance. [] HENT: Normocephalic, atraumatic, bilateral external ears normal, oropharynx moist, no oral exudates, nose normal. [] Eyes: PERRLA, EOMI, conjunctiva normal, no discharge. [] Neck: Normal range of motion, no tenderness, supple, no stridor. [] Cardiovascular:Heart rate regular rhythm, no murmur [] Lungs & Thorax: Bilateral breath sounds clear to auscultation [] Abdomen: Bowel sounds normal, soft, no tenderness, no masses, no pulsatile masses. [] Skin: Warm, dry, no erythema, no rash. [] Back: No tenderness, no CVA tenderness. [] Extremities: No tenderness, no cyanosis, no clubbing, ROM intact, no edema. [] Neurologic: Alert and oriented X 3, normal motor function, normal sensory function, no focal deficits noted. [] Psychologic: Affect normal, judgement normal, mood normal. [] Current Patient Data Vital Signs Vital Signs Date Time Temp Pulse Resp B/P (MAP) Pulse Ox O2 Delivery O2 Flow Rate FiO2 04/18/18 10:14 97.7 93 16 166/86 (112) 99 Room Air 97.7 Lab Values Laboratory Tests Test 04/18/18 10:50 04/18/18 10:53 White Blood Count 6.0 x10^3/uL (4.0-11.0) Red Blood Count 4.93 x10^6/uL (3.50-5.40) Hemoglobin 14.6 g/dL (12.0-15.5) Hematocrit 44.2 % (36.0-47.0) Mean Corpuscular Volume 90 fL (79-100) Mean Corpuscular Hemoglobin 30 pg (25-35) Mean Corpuscular Hemoglobin Concent 33 g/dL (31-37) Red Cell Distribution Width 15.0 % (11.5-14.5) H Platelet Count 392 x10^3/uL (140-400) Neutrophils (%) (Auto) 51 % (31-73) Lymphocytes (%) (Auto) 39 % (24-48) Monocytes (%) (Auto) 6 % (0-9) Eosinophils (%) (Auto) 3 % (0-3) Basophils (%) (Auto) 2 % (0-3) Neutrophils # (Auto) 3.0 x10^3uL (1.8-7.7) Lymphocytes # (Auto) 2.3 x10^3/uL (1.0-4.8) Monocytes # (Auto) 0.4 x10^3/uL (0.0-1.1) Eosinophils # (Auto) 0.2 x10^3/uL (0.0-0.7) Basophils # (Auto) 0.1 x10^3/uL (0.0-0.2) Prothrombin Time 11.7 SEC (11.7-14.0) Prothrombin Time INR 0.9 (0.8-1.1) Urine Collection Type Unknown Urine Color Yellow Urine Clarity Clear Urine pH 6.0 Urine Specific [place] >=1.030 Urine Protein 100 mg/dL (NEG-TRACE) Urine Glucose (UA) >=1000 mg/dL (NEG) Urine Ketones (Stick) Negative mg/dL (NEG) Urine Blood Negative (NEG) Urine Nitrite Negative (NEG) Urine Bilirubin Negative (NEG) Urine Urobilinogen Dipstick 0.2 mg/dL (0.2 mg/dL) Urine Leukocyte Esterase Negative (NEG) Urine RBC Occ /HPF (0-2) Urine WBC 1-4 /HPF (0-4) Urine Squamous Epithelial Cells Many /LPF Urine Bacteria Many /HPF (0-FEW) Urine Mucus Slight /LPF Sodium Level 137 mmol/L (136-145) Potassium Level 4.0 mmol/L (3.5-5.1) Chloride Level 98 mmol/L (98-107) Carbon Dioxide Level 31 mmol/L (21-32) Anion Gap 8 (6-14) Blood Urea Nitrogen 10 mg/dL (7-20) Creatinine 0.7 mg/dL (0.6-1.0) Estimated GFR (Cockcroft-Gault) 105.5 BUN/Creatinine Ratio 14 (6-20) Glucose Level 343 mg/dL (70-99) H Calcium Level 9.6 mg/dL (8.5-10.1) Total Bilirubin 0.2 mg/dL (0.2-1.0) Aspartate Amino Transferase (AST) 15 U/L (15-37) Alanine Aminotransferase (ALT) 38 U/L (14-59) Alkaline Phosphatase 121 U/L (46-116) H Troponin I Quantitative < 0.017 ng/mL (0.000-0.055) YF-Daq-J-Type Natriuretic Peptide 25 pg/mL (0-124) Total Protein 8.3 g/dL (6.4-8.2) H Albumin 3.8 g/dL (3.4-5.0) Albumin/Globulin Ratio 0.8 (1.0-1.7) L POC Urine HCG, Qualitative Hcg negative (Negative) Laboratory Tests 04/18/18 10:50 Laboratory Tests 04/18/18 10:50 EKG EKG EKG shows a sinus rhythm at 77 bpm, normal axis, no ST elevation, when compared with old EKG of 11/01/2017 no acute changes are present. This was interpreted by me at 1050[] Radiology/Procedures Radiology/Procedures CT scan of the head as well as portable chest x-ray did not show any acute features[] Course & Med Decision Making Course & Med Decision Making Pertinent Labs and Imaging studies reviewed. (See chart for details) ED course: Patient arrived, was placed in bed, and tolerated exam well. She remained stable during her emergency department stay. After the return of laboratory and imaging studies, these were discussed with the patient who voiced understanding. All questions were answered. Gem decision making: There does not appear to be an acute coronary syndrome, no evidence of a stroke syndrome, patient's glucose is noted to be elevated however she is not in DKA, no evidence of urinary tract infection or sepsis.[] Dragon Disclaimer Dragon Disclaimer This electronic medical record was generated, in whole or in part, using a voice recognition dictation system. Departure Departure Impression: Primary Impression: Dizziness Additional Impression: Poorly controlled diabetes mellitus Disposition: 01 HOME, SELF-CARE Condition: IMPROVED Referrals: MARTHA CASTANO (PCP) Follow-up in 2 days Patient Instructions: 1800 Calorie Diet for Diabetes Meal Planning, Dizziness Additional Instructions: Drink plenty of fluids. Follow your diabetic diet. Return to the ER if worsening dizziness or weakness or any other concerns Problem Qualifiers GENNY LACEY DO Apr 18, 2018 10:39
[2018-04-18 11:03] LABS: BASO # 0.1 x10^3/uL (0.0-0.2); BASO % 2 % (0-3); EOS # 0.2 x10^3/uL (0.0-0.7); EOS % 3 % (0-3); HEMATOCRIT 44.2 % (36.0-47.0); HEMOGLOBIN 14.6 g/dL (12.0-15.5); LYMPH # 2.3 x10^3/uL (1.0-4.8); LYMPH % 39 % (24-48); MEAN CORPUSCULAR HEMOGLOBIN 30 pg (25-35); MEAN CORPUSCULAR HGB CONC 33 g/dL (31-37); MEAN CORPUSCULAR VOLUME 90 fL (79-100); MONO # 0.4 x10^3/uL (0.0-1.1); MONO % 6 % (0-9); NEUT % 51 % (31-73); PLATELET COUNT 392 x10^3/uL (140-400); RED BLOOD COUNT 4.93 x10^6/uL (3.50-5.40)
[2018-04-18 11:05] LABS: BILIRUBIN,URINE NEGATIVE (NEG); CLARITY,URINE CLEAR; COLOR,URINE YELLOW; NITRITE,URINE NEGATIVE (NEG); PROTEIN,URINE 100 mg/dL (NEG-TRACE); UROBILINOGEN,URINE 0.2 mg/dL (0.2 mg/dL)
[2018-04-18 11:10] LABS: CALCIUM 9.6 mg/dL (8.5-10.1); CREATININE 0.7 mg/dL (0.6-1.0); GFR 105.5
[2018-04-18 11:13] LABS: PROTHROMBIN TIME PATIENT 11.7 SEC (11.7-14.0)
[2018-04-18 11:16] LABS: ALBUMIN 3.8 g/dL (3.4-5.0); ALBUMIN/GLOBULIN RATIO 0.8 (1.0-1.7); TOTAL BILIRUBIN 0.2 mg/dL (0.2-1.0); TOTAL PROTEIN 8.3 g/dL (6.4-8.2)
--- NOTE | 2018-04-18 11:18 | RAD ---
PORTABLE CHEST 1V Clinical History: DIZZINESS Technique: AP view of the chest was obtained at 04/18/2018 10:35 AM. Comparison: December 01, 2017. Findings: The cardiomediastinal silhouette is normal. The pulmonary vasculature is normal. The lungs and pleural margins are clear. Impression: No evidence of an acute cardiopulmonary process. Electronically signed by: Ilir Garrido III, MD (04/18/2018 11:15 AM) [facility]
[2018-04-18 11:24] LABS: SQUAMOUS EPITHELIAL CELL,UR MANY /LPF
[2018-04-18 11:25] LABS: BACTERIA,URINE MANY /HPF (0-FEW); RBC,URINE OCC /HPF (0-2)
[2018-04-18 11:30] VITALS: BP 142/84
--- NOTE | 2018-04-18 11:34 | RAD ---
CT Head W/O Contrast: History: DIZZINESS; LOWER EXTREMITY NUMBNESS Comparison: none Axial images were obtained without contrast. The patterson and white matter appears normal and symmetrical for the patients age. There is no mass effect, extraaxial fluid collections or hydrocephalus. There is no gross bleed. There is no focal loss of patterson-white matter distinction to suggest acute ischemia, i.e. stroke. Impression: No acute findings. RS Compliance Statement: One or more of the following individualized dose reduction techniques were utilized for this examination: 1. Automated exposure control 2. Adjustment of the mA and/or kV according to patient size 3. Use of iterative reconstruction technique Electronically signed by: Ilir Garrido III, MD (04/18/2018 11:31 AM) [facility]
--- NOTE | 2018-04-20 08:19 | EKG ---
[facility] [address] [place] [address] Test Date: 2018-04-18 Test Time: 10:46:17 Pat Name: JORDON OSORIO Department: Room: Gender: F Barback: : 1965 Requested By: GENNY LACEY Order Number: [id number] Reading MD: Luis Marinelli MD Measurements Intervals [place] Rate: 77 P: 34 AL: 168 QRS: 3 QRSD: 70 T: 60 QT: 378 QTc: 430 Interpretive Statements SINUS RHYTHM Electronically Signed On 04-21-2018 10:16:33 CADDY PACKER by Luis Marinelli MD
== END 2018-04-18 12:07 | disposition home or self-care (01) ==
LOC: ER 10:01
DX: E11.9 Type 2 diabetes mellitus without complications (principal); I10 Essential (primary) hypertension; G89.29 Other chronic pain; Z91.041 Radiographic dye allergy status
CPT/HCPCS: 36415; 70450; 71045; 80053; 81001; 81025; 83880; 84484; 85025; 85610; 87086; 93005; 99284-25

== ENCOUNTER 2018-04-25 01:29 | Emergency (ER) | payer OTHER ==
[~2018-04-25] VITALS: Ht 170.2 cm; Wt 92.5 kg
--- NOTE | 2018-04-25 02:15 | PHYS DOC ---
Past Medical History Past Medical History: Depression, Diabetes-Type II, Endometriosis, Hypertension Additional Past Medical Histor: chronic back and hip pain,bacterial vaginosis, ENDOMETRIOSIS Past Surgical History: Other Additional Past Surgical Histo: TOENAIL, LEFT ARM, BREAST (L) Alcohol Use: Occasionally Drug Use: None Adult General Chief Complaint Chief Complaint: HIP PAIN HPI HPI Patient is a 52 year old female who presents with right hip pain that radiates sometimes down her anterolateral leg to her knee. She reports having hip pain for "awhile now" but that it became acutely worse 2 days ago. no trauma but she works 12 hour shifts it is worse after that no fever no b/b incontinence. also thinks her diveritulcitis is acting up the last few weeks on and off left lower quadrant pain with early satiety. Review of Systems Review of Systems Constitutional: Denies fever or chills [] Eyes: Denies change in visual acuity, redness, or eye pain [] HENT: Denies nasal congestion or sore throat [] Respiratory: Denies cough or shortness of breath [] Cardiovascular: No additional information not addressed in HPI [] Musculoskeletal: All other systems were reviewed and found to be within normal limits, except as documented in this note. Current Medications Current Medications Current Medications Medications (Trade) Dose Ordered Sig/Fransico Start Time Stop Time Status Last Admin Dose Admin Diazepam (Valium) 5 mg 1X ONCE 04/25/18 03:15 04/25/18 03:16 DC 04/25/18 03:18 5 MG Ketorolac Tromethamine (Toradol 30mg Vial) 30 mg 1X ONCE 04/25/18 03:15 04/25/18 03:16 DC 04/25/18 03:19 30 MG Allergies Allergies Allergies Coded Allergies Type Severity Reaction Last Updated Verified Iodine and Iodide Containing Produc Allergy Intermediate itching 06/13/17 Yes Physical Exam Physical Exam Constitutional: Well developed, well nourished, no acute distress, non-toxic appearance. [] HENT: Normocephalic, atraumatic, bilateral external ears normal, oropharynx moist, no oral exudates, nose normal. [] Eyes: PERRLA, EOMI, conjunctiva normal, no discharge. [] Neck: Normal range of motion, no tenderness, supple, no stridor. [] Cardiovascular:Heart rate regular rhythm, no murmur [] Lungs & Thorax: Bilateral breath sounds clear to auscultation [] Abdomen: Bowel sounds normal, very mild llq ttp noted. Skin: Warm, dry, no erythema, no rash. [] Back: No tenderness, no CVA tenderness. [] Extremities:ttp noted right buttock right it band area, calf normal pulses normal gretaer troch mild ttp no erythema Neurologic: Alert and oriented X 3, normal motor function, normal sensory function, no focal deficits noted. [] Psychologic: Affect normal, judgement normal, mood normal. [] Current Patient Data Vital Signs Vital Signs Date Time Temp Pulse Resp B/P (MAP) Pulse Ox O2 Delivery O2 Flow Rate FiO2 04/25/18 03:15 80 16 140/83 (102) 100 Room Air 04/25/18 01:44 97.8 97.8 EKG EKG [] Radiology/Procedures Radiology/Procedures [] Course & Med Decision Making Course & Med Decision Making Pertinent Labs and Imaging studies reviewed. (See chart for details) []probably sciatica less likely bursitis no trauma i dont think we need to image right now. rom is intact doubt septic joint noted secondary complaint of llq pain abdomen really not very tender i think we can trial oral antibiotics. i gave good precautions to come back in five days if the symptoms don't improve she is agreeable. Dragon Disclaimer Dragon Disclaimer This electronic medical record was generated, in whole or in part, using a voice recognition dictation system. Departure Departure Impression: Primary Impression: Sciatica of right side Disposition: 01 HOME, SELF-CARE Condition: STABLE Referrals: MARTHA CASTANO SQE (PCP) Scripts Amoxicillin/Potassium Clav (AUGMENTIN 500-125 TABLET) 1 Each Tablet 1 TAB PO BID, #14 TAB Prov: ADRY JIMENEZ MD 04/25/18 Hydrocodone/Apap 5-325 (NORCO 5-325 TABLET) 1 Each Tablet 1-2 EACH PO PRN Q6HRS PRN for PAIN, #15 as needed for pain Prov: ADRY JIMENEZ MD 04/25/18 ADRY JIMENEZ MD Apr 25, 2018 02:15
[2018-04-25] MEDS ORDERED: AMOX1TAB58 PO (02:35)
[2018-04-25] MEDS ORDERED: HYDR-3164 PO (02:35)
[2018-04-25 03:15] VITALS: BP 140/83
[2018-04-25] MEDS ORDERED: diazePAM 5 MG TABLET PO ONE (03:15)
[2018-04-25] MEDS ORDERED: KETOROLAC 30 MG/ML VIAL. IM ONE (03:15)
== END 2018-04-25 03:21 | disposition home or self-care (01) ==
LOC: ER 01:29
DX: M54.41 Lumbago with sciatica, right side (principal); M25.551 Pain in right hip; R10.32 Left lower quadrant pain; E11.9 Type 2 diabetes mellitus without complications; I10 Essential (primary) hypertension; G89.29 Other chronic pain; Z91.041 Radiographic dye allergy status
CPT/HCPCS: 96372; 99283; J1885

== ENCOUNTER 2018-05-03 09:29 | Emergency (ER) | payer OTHER ==
[~2018-05-03] VITALS: Ht 167.6 cm; Wt 95.7 kg
[~2018-05-03 09:29] MED LIST changes: +AMOX1TAB58 PO
[2018-05-03 09:30] VITALS: BP 149/91
--- NOTE | 2018-05-03 09:55 | PHYS DOC ---
Past Medical History Past Medical History: Depression, Diabetes-Type II, Endometriosis, Hypertension Additional Past Medical Histor: chronic back and hip pain,bacterial vaginosis, ENDOMETRIOSIS Past Surgical History: Other Additional Past Surgical Histo: TOENAIL, LEFT ARM, BREAST (L) Alcohol Use: Occasionally Drug Use: None Adult General Chief Complaint Chief Complaint: SHOULDER INJURY HPI HPI Patient is a 52 year old female with history of hypertension, diabetes type 2, depression, who presents to the ED today complaining of moderate left shoulder pain, patient states that began a week ago with tingling in her left upper extremity, she states this morning she woke up and she was not able to lift her left UE up due to the pain. Patient is also complaining of ongoing tingling to the left fingers intermittently. Patient denies any known injury but she states she works at a [place] [employer] facility where they have new lifting equipment. Review of Systems Review of Systems Constitutional: Denies fever or chills [] Musculoskeletal: Reports left shoulder pain Integument: Denies rash or skin lesions [] Neurologic: Denies headache, focal weakness or sensory changes [] All other systems were reviewed and found to be within normal limits, except as documented in this note. Current Medications Current Medications Current Medications Medications (Trade) Dose Ordered Sig/Fransico Start Time Stop Time Status Last Admin Dose Admin Acetaminophen/ Hydrocodone Bitart (Lortab 5/325) 2 tab 1X ONCE 05/03/18 10:15 05/03/18 10:16 DC 05/03/18 10:30 2 TAB Cyclobenzaprine HCl (Flexeril) 10 mg 1X ONCE 05/03/18 10:15 05/03/18 10:16 DC 05/03/18 10:29 10 MG Naproxen (Naprosyn) 500 mg 1X STAT 05/03/18 10:06 05/03/18 10:08 DC 05/03/18 10:30 500 MG Prednisone (Prednisone) 60 mg 1X ONCE 05/03/18 10:15 05/03/18 10:16 DC 05/03/18 10:29 60 MG Allergies Allergies Allergies Coded Allergies Type Severity Reaction Last Updated Verified Iodine and Iodide Containing Produc Allergy Intermediate itching 06/13/17 Yes Physical Exam Physical Exam Constitutional: Well developed, well nourished, no acute distress, non-toxic appearance. [] Back: No tenderness, no CVA tenderness. [] Extremities: Left shoulder with no obvious deformity. Tenderness on palpation of the right shoulder ACM joint. Full passive range of motion to the left to the left upper extremity adequate radial, medial, ulnar sensation to the left fingers. +2 left radial pulse. Cap refill less than 2 seconds and left fingers. Neurologic: Alert and oriented X 3, normal motor function, normal sensory function, no focal deficits noted. [] Psychologic: Affect normal, judgement normal, mood normal. [] Current Patient Data Vital Signs Vital Signs Date Time Temp Pulse Resp B/P (MAP) Pulse Ox O2 Delivery O2 Flow Rate FiO2 05/03/18 09:30 97.3 104 21 149/91 (110) 99 Room Air 97.3 EKG EKG [] Radiology/Procedures Radiology/Procedures []PROCEDURE: SHOULDER 2+V LEFT Examination: 2 views of the left shoulder HISTORY: History of left shoulder pain COMPARISON: 04/18/2018 FINDINGS: The humerus head is within the glenoid. Mild degenerative changes identified in the acromioclavicular joint and the glenohumeral joint. There is no obvious acute fracture or dislocation identified. Soft tissue calcification identified lateral to the greater tuberosity. IMPRESSION: 1. Soft tissue calcification identified lateral to the greater tuberosity probably calcific tendinosis o/tendinitis. 2. No acute osseous findings. Electronically signed by: Nitin Christina MD (05/03/2018 10:13 AM) [facility] DICTATED and SIGNED BY: NITIN CHRISTINA MD DATE: 05/03/18 1013 Course & Med Decision Making Course & Med Decision Making Pertinent Labs and Imaging studies reviewed. (See chart for details) This is a 53-year-old female patient presenting to the ED today with left shoulder pain, no injury. Left shoulder x-rays interpreted by radiologist as negative for any acute findings, noted for soft tissue calcification identified lateral to the greater tuberosity probably calcific tendinosis o/tendinitis. Provided a sling in the ED applied by the ED RN, neurovascular exam is intact, encouraged to take the left upper extremity through full range of motion several times every hour to prevent frozen shoulder from using the sling. Discharged with diclofenac, cyclobenzaprine, Medrol Dosepak, provided orthopedic doctor to follow up with as an outpatient. Dragon Disclaimer Dragon Disclaimer This electronic medical record was generated, in whole or in part, using a voice recognition dictation system. Departure Departure Impression: Primary Impression: Left shoulder tendinitis Disposition: 01 HOME, SELF-CARE Condition: STABLE Referrals: UNKNOWN PCP NAME (PCP) CHRISTELLE AMEZQUITA MD Please call his office this week or next week for follow up appointment Patient Instructions: Tendinitis, [id number] Additional Instructions: You were evaluated in the emergency room and noted to have tendinitis in the left shoulder. Please try to ice and elevate the affected extremity. Try to take the extremity through full range of motion several times a day while using the sling to prevent frozen shoulder. Scripts Diclofenac Sodium (DICLOFENAC SODIUM) 50 Mg Tablet.dr 1 TAB PO BID, #60 TAB 2 Refills Prov: IVON HARDIN APRN 05/03/18 Cyclobenzaprine Hcl (CYCLOBENZAPRINE HCL) 10 Mg Tablet 1 TAB PO TID, #30 TAB Prov: IVON HARDIN APRN 05/03/18 Methylprednisolone (MEDROL) 4 Mg Tab.ds.pk 1 PKG PO UD, #1 PKG Prov: IVON HARDIN APRN 05/03/18 IVON HARDIN APRN May 03, 2018 09:55
[2018-05-03] MEDS ORDERED: NAPROXEN 500 MG TABLET PO STA (10:06)
[2018-05-03] MEDS ORDERED: predniSONE 20 MG TABLET PO ONE (10:15)
[2018-05-03] MEDS ORDERED: CYCLOBENZAPRINE 10 MG TABLET. PO ONE (10:15)
[2018-05-03] MEDS ORDERED: HYDROcodone/APAP 5/325MG 1 TAB TABLET PO ONE (10:15)
--- NOTE | 2018-05-03 10:16 | RAD ---
Examination: 2 views of the left shoulder HISTORY: History of left shoulder pain COMPARISON: 04/18/2018 FINDINGS: The humerus head is within the glenoid. Mild degenerative changes identified in the acromioclavicular joint and the glenohumeral joint. There is no obvious acute fracture or dislocation identified. Soft tissue calcification identified lateral to the greater tuberosity. IMPRESSION: 1. Soft tissue calcification identified lateral to the greater tuberosity probably calcific tendinosis o/tendinitis. 2. No acute osseous findings. Electronically signed by: Nitin Christina MD (05/03/2018 10:13 AM) [facility]
[2018-05-03] MEDS ORDERED: CYCL10TA2 PO (10:40)
[2018-05-03] MEDS ORDERED: DICL50TA4 PO (10:40)
[2018-05-03] MEDS ORDERED: METH4TAB2 PO (10:40)
== END 2018-05-03 11:02 | disposition home or self-care (01) ==
LOC: ER 09:29
DX: M75.82 Other shoulder lesions, left shoulder (principal); I10 Essential (primary) hypertension; E11.9 Type 2 diabetes mellitus without complications; G89.29 Other chronic pain; Z88.8 Allergy status to other drugs, medicaments and biological substances
CPT/HCPCS: 73030; 99284; J7512

== ENCOUNTER 2018-07-01 21:42 | Emergency (ER) | payer OTHER ==
[~2018-07-01] VITALS: Ht 172.7 cm; Wt 95.7 kg
[2018-07-01 21:48] VITALS: BP 147/82
[2018-07-01] MEDS ORDERED: LIDOCAINE (700MG/PATCH) PATCH. TD ONE (22:15)
[2018-07-01] MEDS ORDERED: METHOCARBAMOL 750 MG TABLET PO ONE (22:15)
[2018-07-01] MEDS ORDERED: HYDROcodone/APAP 5/325MG 1 TAB TABLET PO ONE (22:15)
[2018-07-01] MEDS ORDERED: HYDR-3164 PO (22:32)
[2018-07-01] MEDS ORDERED: METH-38 PO (22:32)
--- NOTE | 2018-07-01 22:32 | PHYS DOC ---
Past Medical History Past Medical History: Depression, Diabetes-Type II, Endometriosis, Hypertension Additional Past Medical Histor: chronic back and hip pain,bacterial vaginosis,ENDOMETRIOSIS (ROLLY VELAZQUEZ APRN) Past Surgical History: Other Additional Past Surgical Histo: TOENAIL, LEFT ARM, BREAST (L) (ROLLY VELAZQUEZ APRN) Alcohol Use: Occasionally Drug Use: None (ROLLY VELAZQUEZ APRN) Adult General Chief Complaint Chief Complaint: HIP PAIN HPI HPI 52-year-old female presents to ER for complaints of right lower back pain radiating into her right lower extremity. Patient denies any injury or recent falls. Patient reports she has had similar episodes in the past and has been diagnosed with bursitis in her right hip. She denies swelling in extremities, incontinence of bowel or bladder, or saddle anesthesia. Patient denies numbness or tingling. She denies urinary symptoms. (ROLLY VELAZQUEZ APRN) Review of Systems Review of Systems Constitutional: Denies fever or chills [] Respiratory: Denies cough or shortness of breath [] Cardiovascular: No additional information not addressed in HPI [] GI: Denies abdominal pain, nausea, vomiting, bloody stools or diarrhea [] : Denies dysuria or hematuria. Denies incontinence. Denies vaginal symptoms Musculoskeletal: Reports right lower back pain radiating through middle buttock and into right posterior/upper leg Integument: Denies rash or skin lesions [] Neurologic: Denies focal weakness or sensory changes [] All other systems were reviewed and found to be within normal limits, except as documented in this note. (ROLLY VELAZQUEZ APRN) Current Medications Current Medications Current Medications Medications (Trade) Dose Ordered Sig/Fransico Start Time Stop Time Status Last Admin Dose Admin Acetaminophen/ Hydrocodone Bitart (Lortab 5/325) 1 tab 1X ONCE 07/01/18 22:15 07/01/18 22:16 DC 07/01/18 22:14 1 TAB Lidocaine (Lidoderm) 1 patch 1X ONCE 07/01/18 22:15 07/01/18 22:16 DC 07/01/18 22:12 1 PATCH Methocarbamol (Robaxin) 750 mg 1X ONCE 07/01/18 22:15 07/01/18 22:16 DC 07/01/18 22:19 750 MG (ADRY JIMENEZ MD) Allergies Allergies Allergies Coded Allergies Type Severity Reaction Last Updated Verified Iodine and Iodide Containing Produc Allergy Intermediate itching 06/13/17 Yes (ADRY JIMENEZ MD) Physical Exam Physical Exam Constitutional: Well developed, well nourished, no acute distress, non-toxic appearance. [] HENT: Normocephalic, atraumatic, oropharynx moist, nose normal. [] Eyes: Pupils equal, conjunctiva normal, no discharge. [] Neck: Normal range of motion, supple, no stridor. [] Cardiovascular: Heart rate regular rhythm, no murmur [] Lungs & Thorax: Bilateral breath sounds clear to auscultation- resp. equal/nonlabored Abdomen: Bowel sounds normal, soft, no tenderness Skin: Warm, dry, no erythema, no rash. [] Back: Tender rt lower back into middle buttock- no swelling. No CVA tenderness. [] Extremities: Tender upper/posterior leg. No cyanosis, no clubbing, ROM intact, no edema.2+ bilat. dorsalis pedis/posterior tibial Neurologic: Alert and oriented X 3, normal motor function, normal sensory function, no focal deficits noted. [] Psychologic: Affect normal, judgement normal, mood normal. [] (ROLLY VELAZQUEZ APRN) Current Patient Data Vital Signs Vital Signs Date Time Temp Pulse Resp B/P (MAP) Pulse Ox O2 Delivery O2 Flow Rate FiO2 07/01/18 22:14 98 Room Air 07/01/18 21:48 98.0 98 20 147/82 (103) 98.0 (ADRY JIMENEZ MD) EKG EKG [] (ROLLY VELAZQUEZ APRN) Radiology/Procedures Radiology/Procedures [] (ROLLY VELAZQUEZ APRN) Course & Med Decision Making Course & Med Decision Making She was evaluated in the ER for complaints of right lower back pain which radiated into her right lower leg. Patient has history of chronic lower back pain and bursitis of right hip. Patient was treated with Robaxin and Spencer while in the ER and will be provided with prescriptions. Patient advised on need of follow-up with her primary care physician and/or orthopedics. Patient was PMS intact in bilateral lower extremities with steady unassisted gait. She had no focal neuro deficits and denied incontinence or saddle anesthesia. With patient having history of chronic pain and denying any recent injury no imaging obt ained. Education provided on signs and symptoms to return to ER. Discharge instructions were discussed. [] (ROLLY VELAZQUEZ APRN) Course & Med Decision Making Staff Physician Addendum: I was working in the ER during the course of this patient's visit. I was available for consultation as needed, but I was not directly involved in the care of this patient. (ADRY JIMENEZ MD) Dragon Disclaimer Dragon Disclaimer This electronic medical record was generated, in whole or in part, using a voice recognition dictation system. (ROLLY VELAZQUEZ APRN) Departure Departure Impression: Primary Impression: Sciatica of right side Additional Impression: Back pain Disposition: 01 HOME, SELF-CARE Condition: STABLE Referrals: UNKNOWN PCP NAME (PCP) Patient Instructions: Back Pain, Adult, Sciatica Additional Instructions: Ice and/or heat compress to affected area every 3-4 hours for 20-30 minutes at a time. Sports cream (over the counter) to affected area and Epsom salt soaks for other options for pain relief- as directed on container. You can take [id number] Tylenol and/or ibuprofen as directed on container. If taking prescribed Spencer do not take additional acetaminophen. Follow-up with your primary care physician and/or orthopedics for reevaluation and further care. If taking prescribed medications no driving or drinking alcohol while on the medication. Scripts Hydrocodone/Apap 5-325 (NORCO 5-325 TABLET) 1 Each Tablet 1 TAB PO PRN Q6HRS PRN for PAIN, #10 TAB 0 Refills Prov: ROLLY VELAZQUEZ APRN 07/01/18 Methocarbamol (ROBAXIN-750) 750 Mg Tablet 1 TAB PO BID PRN for PAIN, #10 TAB 0 Refills Prov: ROLLY VELAZQUEZ APRN 07/01/18 Problem Qualifiers ROLLY VELAZQUEZ APRN July 01, 2018 22:32 ADRY JIMENEZ MD July 06, 2018 09:17
== END 2018-07-01 22:39 | disposition home or self-care (01) ==
LOC: ER 21:42
DX: M54.41 Lumbago with sciatica, right side (principal); G89.29 Other chronic pain; E11.9 Type 2 diabetes mellitus without complications; I10 Essential (primary) hypertension; Z91.041 Radiographic dye allergy status
CPT/HCPCS: 99284

== ENCOUNTER 2018-10-28 21:56 | Emergency (ER) | payer OTHER ==
[~2018-10-28] VITALS: Ht 167.6 cm; Wt 93.9 kg
[~2018-10-28 21:56] MED LIST changes: +METF500T11 PO; -METF500T9 PO; +METH-38 PO
--- NOTE | 2018-10-28 22:29 | PHYS DOC ---
Past Medical History Past Medical History: Depression, Diabetes-Type II, Endometriosis, Hypert ension, Sciatica Additional Past Medical Histor: chronic back and hip pain,bacterial vaginosis,ENDOMETRIOSIS Past Surgical History: Other Additional Past Surgical Histo: TOENAIL, LEFT ARM, BREAST (L) Alcohol Use: Occasionally Drug Use: None Adult General Chief Complaint Chief Complaint: LOWER EXT PAIN HPI HPI Patient is a 53 year old female with hx of sciatica, hypertension, diabetes type 2, who presents to the ED today complaining of 7 out of 10 right lateral ventura pain radiating to the right lateral knee that began 3 days ago. Patient describes the pain as throbbing and intermittent. She states she had varicose vein stripping done weeks ago and has had some pain on and off since then. Denies any injuries. Denies any chest pain, denies any shortness of breath, denies any recent hospitalization, denies any recent long air travel. Denies any personal family history of DVTs. Review of Systems Review of Systems Constitutional: Denies fever or chills [] Eyes: Denies change in visual acuity, redness, or eye pain [] HENT: Denies nasal congestion or sore throat [] Respiratory: Denies cough or shortness of breath [] Cardiovascular: No additional information not addressed in HPI [] GI: Denies abdominal pain, nausea, vomiting, bloody stools or diarrhea [] : Denies dysuria or hematuria [] Musculoskeletal: Reports right lateral ventura pain into the right knee. Denies back pain Integument: Denies rash or skin lesions [] Neurologic: Denies headache, focal weakness or sensory changes [] All other systems were reviewed and found to be within normal limits, except as documented in this note. Current Medications Current Medications Current Medications Medications (Trade) Dose Ordered Sig/Fransico Start Time Stop Time Status Last Admin Dose Admin Acetaminophen/ Hydrocodone Bitart (Lortab 5/325) 2 tab 1X ONCE 10/28/18 22:30 10/28/18 22:31 DC 10/28/18 22:32 2 TAB Cyclobenzaprine HCl (Flexeril) 10 mg 1X ONCE 10/28/18 22:30 10/28/18 22:31 DC 10/28/18 22:32 10 MG Allergies Allergies Allergies Coded Allergies Type Severity Reaction Last Updated Verified Iodine and Iodide Containing Produc Allergy Intermediate itching 4/27/18 Yes Physical Exam Physical Exam Constitutional: Well developed, well nourished, no acute distress, non-toxic appearance. [] HENT: Normocephalic, atraumatic, bilateral external ears normal, oropharynx moist, no oral exudates, nose normal. [] Eyes: PERRLA, EOMI, conjunctiva normal, no discharge. [] Neck: Normal range of motion, no tenderness, supple, no stridor. [] Cardiovascular:Heart rate regular rhythm, no murmur [] Lungs & Thorax: Bilateral breath sounds clear to auscultation [] Abdomen: Bowel sounds normal, soft, no tenderness, no masses, no pulsatile masses. [] Skin: Warm, dry, no erythema, no rash. [] Back: No tenderness, no CVA tenderness. [] Extremities: Multiple varicose veins noted on the right lower extremity. No tenderness, no cyanosis, no clubbing, ROM intact, no edema. Negative Homans sign to the right lower extremity. Neurologic: Alert and oriented X 3, normal motor function, normal sensory function, no focal deficits noted. [] Psychologic: Affect normal, judgement normal, mood normal. [] Current Patient Data Vital Signs Vital Signs Date Time Temp Pulse Resp B/P (MAP) Pulse Ox O2 Delivery O2 Flow Rate FiO2 10/28/18 22:32 20 96 10/28/18 22:06 97.8 87 172/92 (118) Room Air 97.8 EKG EKG [] Radiology/Procedures Radiology/Procedures [] Course & Med Decision Making Course & Med Decision Making Pertinent Labs and Imaging studies reviewed. (See chart for details) This is a 53-year-old female patient who presents to the ED today complaining of pain to the right lateral ventura radiating into the right knee for couple days. Patient had varicose vein stripping done 3 weeks ago. Venous Doppler of the left lower extremity is negative for DVT. Discharged to home. Follow-up with PCP and vascular surgeon in the course of this week. Dragon Disclaimer Dragon Disclaimer This electronic medical record was generated, in whole or in part, using a voice recognition dictation system. PERC Rule for PE PERC Rule for PE Response (Comments) Value Age > 50: Yes 1 HR > 100: No 0 Sa02 on room air <95%: No 0 Unilateral leg swelling: Yes 1 Hemoptysis: No 0 Recent surgery or trauma: Yes 1 Prior PE or DVT: No 0 Hormone use: No 0 Total 3 Departure Departure Impression: Primary Impression: Right leg pain Additional Impression: Varicose veins of right lower extremity Disposition: 01 HOME, SELF-CARE Condition: STABLE Referrals: UNKNOWN PCP NAME (PCP) Follow-up with your doctor in the course of this week Patient Instructions: Varicose Veins Additional Instructions: You were seen for right lower extremity pain. Please follow-up with your own doctor in the course of this week or next week. Scripts Cyclobenzaprine Hcl (CYCLOBENZAPRINE HCL) 10 Mg Tablet 1 TAB PO TID, #30 TAB Prov: IVON HARDIN APRN 10/28/18 Hydrocodone/Apap 5-325 (NORCO 5-325 TABLET) 1 Each Tablet 1 TAB PO Q6HRS, #10 TAB Prov: IVON HARDIN APRN 10/28/18 Problem Qualifiers Additional Impression: Varicose veins of right lower extremity Varicose vein complication: unspecified Qualified Codes: I83.91 - Asymptomatic varicose veins of right lower extremity IVON HARDIN APRN Oct 28, 2018 22:29
[2018-10-28] MEDS: HYDROcodone/APAP 5/325MG 1 TAB TABLET PO ONE (22:32)
[2018-10-28] MEDS: CYCLOBENZAPRINE 10 MG TABLET. PO ONE (22:32)
[2018-10-28 23:13] VITALS: BP 165/85
[2018-10-28] MEDS ORDERED: HYDR-3164 PO (23:29)
[2018-10-28] MEDS ORDERED: CYCL10TA2 PO (23:29)
--- NOTE | 2018-10-28 23:58 | RAD ---
Exam: VENOUS LOWER EXTREMITY RIGHT Indication: Right calf pain Technique: Color-flow and pulsed wave duplex ultrasound with compression of venous structures of the right lower extremity. Comparison: None Available. Findings: Duplex ultrasound with compression of the deep venous structures of the right lower extremity from the common femoral vein through the popliteal vein is negative for DVT. The posterior tibial and peroneal veins are segmentally visualized and patent where seen. Normal venous waveforms and augmentation are noted throughout. Impression: No evidence for DVT in the right lower extremity. Electronically signed by: Erich Fernandez MD (10/28/2018 11:55 PM) [id number]
== END 2018-10-28 23:40 | disposition home or self-care (01) ==
LOC: ER 21:56
DX: I83.811 Varicose veins of right lower extremity with pain (principal); F32.9 Major depressive disorder, single episode, unspecified; E11.9 Type 2 diabetes mellitus without complications; I10 Essential (primary) hypertension; Z91.041 Radiographic dye allergy status
CPT/HCPCS: 93971; 99284

== ENCOUNTER 2018-12-04 16:48 | Emergency (ER) | payer OTHER ==
[~2018-12-04] VITALS: Ht 167.6 cm; Wt 93.9 kg
[2018-12-04] MEDS ORDERED: KETOROLAC 30 MG/ML VIAL. IM STA (17:01)
[2018-12-04 17:03] VITALS: BP 151/89
[2018-12-04] MEDS ORDERED: ORPH100T PO (17:07)
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
[2018-12-04] MEDS ORDERED: ORPHENADRINE CITRATE 60 MG/2 ML VIAL. IM ONE (17:15)
== END 2018-12-04 17:20 | disposition home or self-care (01) ==
LOC: ER 16:48
DX: S16.1XXA Strain of muscle, fascia and tendon at neck level, initial encounter (principal); S46.812A Strain of other muscles, fascia and tendons at shoulder and upper arm level, left arm, initial encounter; F32.9 Major depressive disorder, single episode, unspecified; E11.9 Type 2 diabetes mellitus without complications; I10 Essential (primary) hypertension; Z91.041 Radiographic dye allergy status; X58.XXXA Exposure to other specified factors, initial encounter; Y93.89 Activity, other specified; Y92.89 Other specified places as the place of occurrence of the external cause; Y99.8 Other external cause status
CPT/HCPCS: 96372; 99284; J1885; J2360

== ENCOUNTER 2018-12-26 17:28 | Emergency (ER) | payer OTHER ==
[~2018-12-26] VITALS: Ht 167.6 cm; Wt 95.3 kg
[2018-12-26 17:50] VITALS: BP 153/93
[2018-12-26] MEDS ORDERED: BENZ100C PO (18:18)
[2018-12-26] MEDS ORDERED: AMOX1TAB61 PO (18:18)
[2018-12-26] MEDS ORDERED: VENTOLIN HFA18 GM INH (18:18)
--- NOTE | 2018-12-26 18:18 | PHYS DOC ---
Past Medical History Past Medical History: Depression, Diabetes-Type II, Endometriosis, Hypert ension, Sciatica Additional Past Medical Histor: chronic back and hip pain,bacterial vaginosis Past Surgical History: Other Additional Past Surgical Histo: TOENAIL, LEFT ARM, BREAST (L); endometrium ablation Alcohol Use: Occasionally Drug Use: None Adult General Chief Complaint Chief Complaint: Congestion HPI HPI Patient is a 53 year old female with history of depression, hypertension, diabetes type 2, endometriosis, sciatica, who presents to the ED today complaining of cough productive in nature, nasal congestion, bilateral ear pain, patient states symptoms began 2 weeks ago. Patient denies any fever. She reports she's been seen at a different facility a week ago and was put on Deconex and Symptoms have not improved. Patient reports she feels her symptoms have gotten worse into a sinus infection. Review of Systems Review of Systems Constitutional: Denies fever or chills [] Eyes: Denies change in visual acuity, redness, or eye pain [] HENT: Reports nasal congestion and bilateral ear pain, denies sore throat [] Respiratory: Reports cough, denies shortness of breath [] Cardiovascular: No additional information not addressed in HPI [] GI: Denies abdominal pain, nausea, vomiting, bloody stools or diarrhea [] : Denies dysuria or hematuria [] Musculoskeletal: Denies back pain or joint pain [] Integument: Denies rash or skin lesions [] Neurologic: Denies headache, focal weakness or sensory changes [] All other systems were reviewed and found to be within normal limits, except as documented in this note. Allergies Allergies Allergies Coded Allergies Type Severity Reaction Last Updated Verified Iodine and Iodide Containing Produc Allergy Intermediate itching 06/13/17 Yes Physical Exam Physical Exam Constitutional: Well developed, well nourished, no acute distress, non-toxic appearance. [] HENT: Normocephalic, atraumatic, bilateral external ears normal, oropharynx moist, no oral exudates, Patient sound congested nasally. Bilateral nasal turbinates are boggy. Bilateral TM are erythematous. Eyes: PERRLA, EOMI, conjunctiva normal, no discharge. [] Neck: Normal range of motion, no tenderness, supple, no stridor. [] Cardiovascular:Heart rate regular rhythm, no murmur [] Lungs & Thorax: Bilateral breath sounds clear to auscultation [] Abdomen: Bowel sounds normal, soft, no tenderness, no masses, no pulsatile masses. [] Skin: Warm, dry, no erythema, no rash. [] Back: No tenderness, no CVA tenderness. [] Extremities: No tenderness, no cyanosis, no clubbing, ROM intact, no edema. [] Neurologic: Alert and oriented X 3, normal motor function, normal sensory function, no focal deficits noted. [] Psychologic: Affect normal, judgement normal, mood normal. [] Current Patient Data Vital Signs Vital Signs Date Time Temp Pulse Resp B/P (MAP) Pulse Ox O2 Delivery O2 Flow Rate FiO2 12/26/18 17:50 98.4 110 18 153/93 (113) 95 Room Air 98.4 EKG EKG [] Radiology/Procedures Radiology/Procedures [] Course & Med Decision Making Course & Med Decision Making Pertinent Labs and Imaging studies reviewed. (See chart for details) This is a 53-year-old female patient presenting to the ED today complaining of cough, nasal congestion, and bilateral ear pain for 2 weeks. Patient has tried Deconex with no relief. D/c on Augmentin, Tessalon perles and albuterol. F/u with PCP in one week. Dragon Disclaimer Dragon Disclaimer This electronic medical record was generated, in whole or in part, using a voice recognition dictation system. Departure Departure Impression: Primary Impression: Acute bronchitis Additional Impressions: Otitis media Acute sinusitis Disposition: 01 HOME, SELF-CARE Condition: STABLE Referrals: UNKNOWN PCP NAME (PCP) follow up with your doctor next week Patient Instructions: Acute Bronchitis, Sinusitis, [id number] Additional Instructions: You were seen for ear infection, sinus infection and cough. Please take the prescribed medications as ordered. Follow-up with your doctor in 2 weeks Scripts Albuterol Sulfate (VENTOLIN HFA INHALER) 18 Gm Hfa.aer.ad 2 PUFF INH Q4HRS for FOR ASTHMA, #1 INHALER 0 Refills Prov: NOVAAIVON [employer] MANAGER 12/26/18 Benzonatate (TESSALON PERLE) 100 Mg Capsule 1 CAP PO TID, #30 CAP Prov: MUTUNGAIVON [employer]S MANAGER 12/26/18 Amoxicillin/Potassium Clav (AUGMENTIN 875-125 TABLET) 1 Each Tablet 1 TAB PO BID for 10 Days, #20 TAB 0 Refills Prov: IVON HARDIN [employer]NAL CONTROLS MANAGER 12/26/18 Problem Qualifiers Primary Impression: Acute bronchitis Bronchitis organism: unspecified organism Qualified Codes: J20.9 - Acute bronchitis, unspecified Additional Impressions: Otitis media Otitis media type: other nonsuppurative Chronicity: acute Laterality: bilateral Recurrence: non-recurrent Qualified Codes: H65.193 - Other acute nonsuppurative otitis media, bilateral Acute sinusitis Sinusitis location: maxillary Recurrence: non-recurrent Qualified Codes: J01.00 - Acute maxillary sinusitis, unspecified IVON HARDIN [employer]NAL CONTROLS MANAGER Dec 26, 2018 18:18
== END 2018-12-26 18:26 | disposition home or self-care (01) ==
LOC: ER 17:28
DX: J20.9 Acute bronchitis, unspecified (principal); H65.193 Other acute nonsuppurative otitis media, bilateral; J01.00 Acute maxillary sinusitis, unspecified; E11.9 Type 2 diabetes mellitus without complications; I10 Essential (primary) hypertension; G89.29 Other chronic pain; Z91.041 Radiographic dye allergy status
CPT/HCPCS: 99283

== ENCOUNTER 2019-01-26 15:08 | Emergency (ER) | payer OTHER ==
[~2019-01-26] VITALS: Ht 167.6 cm; Wt 94.0 kg
[~2019-01-26 15:08] MED LIST changes: +AMOX1TAB61 PO; +BENZ100C PO; +VENTOLIN HFA18 GM INH
[2019-01-26] MEDS ORDERED: IV NORMAL SALINE 1000ML BAG 1,000 ML IV ONE (17:15)
[2019-01-26 17:24] LABS: BASO # 0.1 x10^3/uL (0.0-0.2); BASO % 1 % (0-3); EOS # 0.1 x10^3/uL (0.0-0.7); EOS % 2 % (0-3); HEMATOCRIT 44.7 % (36.0-47.0); LYMPH % 47 % (24-48); MEAN CORPUSCULAR HEMOGLOBIN 31 pg (25-35); MEAN CORPUSCULAR HGB CONC 34 g/dL (31-37); MEAN CORPUSCULAR VOLUME 91 fL (79-100); MONO # 0.4 x10^3/uL (0.0-1.1); MONO % 7 % (0-9); NEUT # 2.7 x10^3/uL (1.8-7.7); NEUT % 43 % (31-73); PLATELET COUNT 357 x10^3/uL (140-400); RED CELL DISTRIBUTION WIDTH 14.4 % (11.5-14.5); WHITE BLOOD COUNT 6.3 x10^3/uL (4.0-11.0)
[2019-01-26 17:29] LABS: CALCIUM 9.6 mg/dL (8.5-10.1); CREATININE 0.7 mg/dL (0.6-1.0); GFR 105.1; POTASSIUM 4.8 mmol/L (3.5-5.1)
[2019-01-26] MEDS ORDERED: fentaNYL PF VIAL 100 MCG/2 ML VIAL IVP ONE (17:30)
[2019-01-26 17:35] LABS: ALBUMIN 3.5 g/dL (3.4-5.0); ALBUMIN/GLOBULIN RATIO 0.9 (1.0-1.7); TOTAL BILIRUBIN 0.2 mg/dL (0.2-1.0); TOTAL PROTEIN 7.6 g/dL (6.4-8.2)
[2019-01-26 17:38] LABS: BILIRUBIN,URINE NEGATIVE (NEG); CLARITY,URINE CLEAR; COLOR,URINE YELLOW; NITRITE,URINE NEGATIVE (NEG); PROTEIN,URINE 100 mg/dL (NEG-TRACE); UROBILINOGEN,URINE 0.2 mg/dL (0.2 mg/dL)
[2019-01-26 17:49] LABS: BACTERIA,URINE FEW /HPF (0-FEW); RBC,URINE 0 /HPF (0-2); SQUAMOUS EPITHELIAL CELL,UR MOD /LPF; WBC,URINE 0 /HPF (0-4)
[2019-01-26 17:50] LABS: YEAST,URINE PRESENT /HPF
--- NOTE | 2019-01-26 18:31 | RAD ---
CT ABDOMEN PELVIS WO CONTRAST Indication: Abdominal pain. Exposure: One or more of the following individualized dose reduction techniques were utilized for this examination: 1. Automated exposure control 2. Adjustment of the mA and/or kV according to patient size 3. Use of iterative reconstruction technique. Comparison: 08/11/2018 Technique: No intravenous contrast given. No oral contrast per request. Findings: Evaluation of solid viscera, bowel and vasculature is compromised by the noncontrast technique. Lung bases demonstrate mild linear opacity likely atelectasis or fibrosis. Primary nodules were described on the previous study, but and cannot be within the [id number] on today's exam. Heterogeneous hepatic density, was also seen on prior study as well as an earlier exam of 06/13/2017, likely due to geographic areas of fatty infiltration. Liver is not enlarged. Spleen not enlarged. Pancreas unremarkable. No evidence of adrenal mass. No evidence of hydronephrosis. Tiny right upper pole nonobstructive renal calculus also seen on prior study. No definite renal lesion. No calcified gallstone. Aorta is calcified without aneurysmal dilatation. Small retroperitoneal lymph nodes are identified in the aortocaval region, stable since previous exam. No new pathologic lymph node enlargement is seen. No significant small bowel distention. Retained stool, particularly in the rectum, moderate. This was also seen previously. No evidence of acute colitis. Mild diverticulosis. The appendix appears within normal limits. No evidence of ascites. No evidence of pneumoperitoneum. Urinary bladder appears unremarkable. No evidence of pelvic mass. Vertebral body height and alignment are intact. Mild degenerative spurring. Subcutaneous density in the right inguinal region just beneath the skin is unchanged as compared with the prior 2 studies, and may represent chronic fibrosis or scarring. Small fat-containing umbilical hernia. IMPRESSION: 1. Stable nonobstructive tiny right renal calculus. 2. Patchy hepatic steatosis again seen. Electronically signed by: Fabrice Underwood MD (01/26/2019 6:28 PM) [facility]
--- NOTE | 2019-01-26 18:35 | PHYS DOC ---
Past Medical History Past Medical History: Depression, Diabetes-Type II, Endometriosis, Hypertension, Sciatica Additional Past Medical Histor: chronic back and hip pain,bacterial vaginosis,endometriosis Past Surgical History: Other Additional Past Surgical Histo: TOENAIL, LEFT ARM, BREAST (L); endometrium ablation Additional Information: 2 cigarettes daily Alcohol Use: Occasionally Drug Use: None Adult General Chief Complaint Chief Complaint: BLOOD SUGAR PROBLEM HPI HPI Patient is a 53 year old Female who presents with went to urgent care and sta ronnie that her blood sugar was elevated and she had left flank pain. They sent her to the emergency room to be evaluated. Patient states she does have urinary free sleep that she drinks a lot of water. She states she does not think since she has excessive thirst. Patient denies nausea, vomiting, dizziness, headache, shortness of air, chest pain, diarrhea, dysuria, hematuria, weakness, numbness or tingling, visual changes. Review of Systems Review of Systems Constitutional: Denies fever or chills [] Eyes: Denies change in visual acuity, redness, or eye pain [] HENT: Denies nasal congestion or sore throat [] Respiratory: Denies cough or shortness of breath [] Cardiovascular: No additional information not addressed in HPI [] GI: Denies abdominal pain, nausea, vomiting, bloody stools or diarrhea [] : Denies dysuria or hematuria [] Musculoskeletal: Denies back pain or joint pain [] Integument: Denies rash or skin lesions [] Neurologic: Denies headache, focal weakness or sensory changes [] Endocrine: Denies polyuria or polydipsia [] All other systems were reviewed and found to be within normal limits, except as documented in this note. Current Medications Current Medications Current Medications Medications (Trade) Dose Ordered Sig/Fransico Start Time Stop Time Status Last Admin Dose Admin Fentanyl Citrate (Fentanyl 2ml Vial) 50 mcg 1X ONCE 01/26/19 17:30 01/26/19 17:31 DC 01/26/19 17:53 50 MCG Insulin Human Regular (HumuLIN R VIAL) 5 unit 1X ONCE 01/26/19 19:00 01/26/19 19:01 DC 01/26/19 19:17 5 UNIT Sodium Chloride 1,000 ml @ 1,000 mls/hr 1X ONCE 01/26/19 17:15 01/26/19 18:14 DC 01/26/19 17:15 1,000 MLS/HR Allergies Allergies Allergies Coded Allergies Type Severity Reaction Last Updated Verified Iodine and Iodide Containing Produc Allergy Intermediate itching 06/13/17 Yes Physical Exam Physical Exam Constitutional: Well developed, well nourished, no acute distress, non-toxic appearance. [] HENT: Normocephalic, atraumatic, bilateral external ears normal, oropharynx mois t, no oral exudates, nose normal. [] Eyes: PERRLA, EOMI, conjunctiva normal, no discharge. [] Neck: Normal range of motion, no tenderness, supple, no stridor. [] Cardiovascular:Heart rate regular rhythm, no murmur [] Lungs & Thorax: Bilateral breath sounds clear to auscultation [] Abdomen: Bowel sounds normal, soft, no tenderness, no masses, no pulsatile masses. [] Skin: Warm, dry, no erythema, no rash. [] Back: No tenderness, no CVA tenderness. [] Extremities: No tenderness, no cyanosis, no clubbing, ROM intact, no edema. [] Neurologic: Alert and oriented X 3, normal motor function, normal sensory function, no focal deficits noted. [] Psychologic: Affect normal, judgement normal, mood normal. [] Current Patient Data Vital Signs Vital Signs Date Time Temp Pulse Resp B/P (MAP) Pulse Ox O2 Delivery O2 Flow Rate FiO2 01/26/19 19:15 84 142/88 (106) 100 Room Air 01/26/19 16:38 97.9 18 97.9 Lab Values Laboratory Tests Test 01/26/19 16:35 01/26/19 16:43 01/26/19 17:05 01/26/19 17:07 Urine Collection Type Void Urine Color Yellow Urine Clarity Clear Urine pH 6.0 Urine Specific [place] >=1.030 Urine Protein 100 mg/dL (NEG-TRACE) Urine Glucose (UA) >=1000 mg/dL (NEG) Urine Ketones (Stick) Negative mg/dL (NEG) Urine Blood Negative (NEG) Urine Nitrite Negative (NEG) Urine Bilirubin Negative (NEG) Urine Urobilinogen Dipstick 0.2 mg/dL (0.2 mg/dL) Urine Leukocyte Esterase Negative (NEG) Urine RBC 0 /HPF (0-2) Urine WBC 0 /HPF (0-4) Urine Squamous Epithelial Cells Mod /LPF Urine Bacteria Few /HPF (0-FEW) Urine Yeast Present /HPF POC Urine HCG, Qualitative Hcg negative (Negative) White Blood Count 6.3 x10^3/uL (4.0-11.0) Red Blood Count 4.90 x10^6/uL (3.50-5.40) Hemoglobin 15.0 g/dL (12.0-15.5) Hematocrit 44.7 % (36.0-47.0) Mean Corpuscular Volume 91 fL (79-100) Mean Corpuscular Hemoglobin 31 pg (25-35) Mean Corpuscular Hemoglobin Concent 34 g/dL (31-37) Red Cell Distribution Width 14.4 % (11.5-14.5) Platelet Count 357 x10^3/uL (140-400) Neutrophils (%) (Auto) 43 % (31-73) Lymphocytes (%) (Auto) 47 % (24-48) Monocytes (%) (Auto) 7 % (0-9) Eosinophils (%) (Auto) 2 % (0-3) Basophils (%) (Auto) 1 % (0-3) Neutrophils # (Auto) 2.7 x10^3/uL (1.8-7.7) Lymphocytes # (Auto) 3.0 x10^3/uL (1.0-4.8) Monocytes # (Auto) 0.4 x10^3/uL (0.0-1.1) Eosinophils # (Auto) 0.1 x10^3/uL (0.0-0.7) Basophils # (Auto) 0.1 x10^3/uL (0.0-0.2) Sodium Level 137 mmol/L (136-145) Potassium Level 4.8 mmol/L (3.5-5.1) Chloride Level 99 mmol/L (98-107) Carbon Dioxide Level 28 mmol/L (21-32) Anion Gap 10 (6-14) Blood Urea Nitrogen 11 mg/dL (7-20) Creatinine 0.7 mg/dL (0.6-1.0) Estimated GFR (Cockcroft-Gault) 105.1 BUN/Creatinine Ratio 16 (6-20) Glucose Level 377 mg/dL (70-99) H Lactic Acid Level 1.9 mmol/L (0.4-2.0) Calcium Level 9.6 mg/dL (8.5-10.1) Total Bilirubin 0.2 mg/dL (0.2-1.0) Aspartate Amino Transferase (AST) 18 U/L (15-37) Alanine Aminotransferase (ALT) 31 U/L (14-59) Alkaline Phosphatase 124 U/L (46-116) H Troponin I Quantitative < 0.017 ng/mL (0.000-0.055) Total Protein 7.6 g/dL (6.4-8.2) Albumin 3.5 g/dL (3.4-5.0) Albumin/Globulin Ratio 0.9 (1.0-1.7) L Acetone Level Neg (NEG) Glucose (Fingerstick) 334 mg/dL (70-99) H Laboratory Tests 01/26/19 17:05 Laboratory Tests 01/26/19 17:05 EKG EKG Sinus Rhythm and no STEMI[] Interpretation Time: [address] Adams Radiology/Procedures Radiology/Procedures [] Impressions: [facility] [address] [place] [address] IMAGING REPORT Signed PATIENT: JORDON OSORIOACCOUNT: [id number] : 1965 LOCATION: ER AGE: 53 SEX: F EXAM STATUS: REG ER ORD. PHYSICIAN: YING PABLO APRN REASON: ABD PAIN PROCEDURE: CT ABDOMEN PELVIS WO CONTRAST CT ABDOMEN PELVIS WO CONTRAST Indication: Abdominal pain. Exposure: One or more of the following individualized dose reduction techniques were utilized for this examination: 1. Automated exposure control 2. Adjustment of the mA and/or kV according to patient size 3. Use of iterative reconstruction technique. Comparison: 08/11/2018 Technique: No intravenous contrast given. No oral contrast per request. Findings: Evaluation of solid viscera, bowel and vasculature is compromised by the noncontrast technique. Lung bases demonstrate mild linear opacity likely atelectasis or fibrosis. Primary nodules were described on the previous study, but and cannot be within the [id number] on today's exam. Heterogeneous hepatic density, was also seen on prior study as well as an earlier exam of 06/13/2017, likely due to geographic areas of fatty infiltration. Liver is not enlarged. Spleen not enlarged. Pancreas unremarkable. No evidence of adrenal mass. No evidence of hydronephrosis. Tiny right upper pole nonobstructive renal calculus also seen on prior study. No definite renal lesion. No calcified gallstone. Aorta is calcified without aneurysmal dilatation. Small retroperitoneal lymph nodes are identified in the aortocaval region, stable since previous exam. No new pathologic lymph node enlargement is seen. No significant small bowel distention. Retained stool, particularly in the rectum, moderate. This was also seen previously. No evidence of acute colitis. Mild diverticulosis. The appendix appears within normal limits. No evidence of ascites. No evidence of pneumoperitoneum. Urinary bladder appears unremarkable. No evidence of pelvic mass. Vertebral body height and alignment are intact. Mild degenerative spurring. Subcutaneous density in the right inguinal region just beneath the skin is unchanged as compared with the prior 2 studies, and may represent chronic fibrosis or scarring. Small fat-containing umbilical hernia. IMPRESSION: 1. Stable nonobstructive tiny right renal calculus. 2. Patchy hepatic steatosis again seen. Electronically signed by: Fabrice Underwood MD (01/26/2019 6:28 PM) [id number] DICTATED and SIGNED BY: FABRICE UNDERWOOD MD DATE: 01/26/191827 Course & Med Decision Making Course & Med Decision Making Left CVA tenderness. Alert and oriented. Speaks in full clear senses. Skin pink warm and dry. Abdomen is soft and nontender. Patient rates her pain a 9 out of 10. Patient complains of chronic constipation but states she had a bowel movement the last 2 days and is felt better. Patient states that for her diabetes she takes to list which is a once a week shot but has not been doing it because she's been working nights and has been forgetting. She has a history of diabetes and high cholesterol constipation and diverticulitis. Mucous membranes are moist. Afebrile. Lungs are clear to auscultation all lobes. Ambulatory with a steady gait. No extremity swelling. Glucose 334. Urinalysis is not show infection. I have spoken about this patient with Dr Lion and he states to give the patient 5u insulin. CT abdomen pelvis shows IMPRESSION: 1. Stable nonobstructive tiny right renal calculus. 2. Patchy hepatic steatosis again seen. Dragon Disclaimer Dragon Disclaimer This electronic medical record was generated, in whole or in part, using a voice recognition dictation system. Departure Departure Impression: Primary Impression: Kidney stone Additional Impression: Hyperglycemia Disposition: 01 HOME, SELF-CARE Condition: STABLE Referrals: UNKNOWN PCP NAME (PCP) Patient Instructions: Hyperglycemia, Kidney Stones Additional Instructions: Follow-up her primary care provider. Taking medication as prescribed. Problem Qualifiers YING PABLO APRN Jan 26, 2019 18:35
[2019-01-26] MEDS ORDERED: INSULIN REGULAR 100 UNIT/ML 3ML VIAL. SQ ONE (19:00)
[2019-01-26 19:15] VITALS: BP 142/88
--- NOTE | 2019-01-27 05:34 | EKG ---
[facility] [address] [place] [address] Test Date: 2019-01-26 Test Time: 17:34:52 Pat Name: JORDON OSORIO Department: Room: Gender: F Histology Specialist: : 1965 Requested By: YING PABLO Order Number: [id number] Reading MD: Measurements Intervals [place] Rate: 80 P: 49 DC: 164 QRS: -1 QRSD: 70 T: 74 QT: 384 QTc: 447 Interpretive Statements SINUS RHYTHM LEFTWARD AXIS QRS(T) CONTOUR ABNORMALITY CONSIDER ANTEROSEPTAL MYOCARDIAL DAMAGE T ABNORMALITY IN HIGH LATERAL LEADS ABNORMAL ECG RI6.01 No previous ECG available for comparison
== END 2019-01-26 19:25 | disposition home or self-care (01) ==
LOC: ER 15:08
DX: N20.0 Calculus of kidney (principal); E11.65 Type 2 diabetes mellitus with hyperglycemia; K76.0 Fatty (change of) liver, not elsewhere classified; I10 Essential (primary) hypertension; F32.9 Major depressive disorder, single episode, unspecified; F17.210 Nicotine dependence, cigarettes, uncomplicated; G89.29 Other chronic pain; Z88.2 Allergy status to sulfonamides; Z91.041 Radiographic dye allergy status
CPT/HCPCS: 36415; 74176; 80053; 81001; 81025; 82010; 82962; 83605; 84484; 85025; 93005; 96361; 96372; 96374; 99285; J1815; J3010; J7030

== ENCOUNTER 2019-03-13 03:18 | Emergency (ER) | payer OTHER ==
[~2019-03-13] VITALS: Ht 167.6 cm; Wt 92.0 kg
--- NOTE | 2019-03-13 03:42 | PHYS DOC ---
Past Medical History Past Medical History: Depression, Diabetes-Type II, Endometriosis, Hypertension, Sciatica Additional Past Medical Histor: chronic back and hip pain,bacterial vaginosis,endometriosis Past Surgical History: Other Additional Past Surgical Histo: TOENAIL, LEFT ARM, BREAST (L); endometrium ablation Alcohol Use: Occasionally Drug Use: None Adult General Chief Complaint Chief Complaint: ABDOMINAL PAIN HPI HPI Patient is a 53 year old female who presents with complaint of left-sided flank/abdominal pain that started a few hours ago. Patient states that she has been constipated for the last few days and so did a suppository and fleets enema after which she had a bowel movement. She states that after having the bowel movement she started having pain in her left flank region. Patient states that she is not sure if the pain is because she strained so hard or if maybe she passed a kidney stone that she was told she had on the left-hand side. She rates pain at a 9 out of 10. She states that she has nausea but has not been able to vomit. Patient states that nothing is improving the pain.[] Review of Systems Review of Systems Constitutional: Denies fever or chills [] Respiratory: Denies cough or shortness of breath [] Cardiovascular: No additional information not addressed in HPI [] GI: Complains of abdominal/flank pain with nausea. Denies vomiting or diarrhea [] Integument: Denies rash or skin lesions [] Neurologic: Denies headache, focal weakness or sensory changes [] All other systems were reviewed and found to be within normal limits, except as documented in this note. Current Medications Current Medications Current Medications Medications (Trade) Dose Ordered Sig/Fransico Start Time Stop Time Status Last Admin Dose Admin Ketorolac Tromethamine (Toradol 30mg Vial) 30 mg 1X ONCE 03/13/19 03:45 03/13/19 03:46 DC 03/13/19 03:51 30 MG Ondansetron HCl (Zofran) 4 mg 1X ONCE 03/13/19 03:45 03/13/19 03:46 DC 03/13/19 03:52 4 MG Sodium Chloride 1,000 ml @ 1,000 mls/hr Q1H 03/13/19 03:45 03/13/19 04:44 DC 03/13/19 03:51 1,000 MLS/HR Allergies Allergies Allergies Coded Allergies Type Severity Reaction Last Updated Verified Iodine and Iodide Containing Produc Allergy Intermediate itching 06/13/17 Yes Physical Exam Physical Exam Constitutional: Well developed, well nourished, no acute distress, non-toxic appearance. [] HENT: Normocephalic, atraumatic, bilateral external ears normal, oropharynx moist, no oral exudates, nose normal. [] Eyes: PERRLA, EOMI, conjunctiva normal, no discharge. [] Neck: Normal range of motion, no tenderness, supple, no stridor. [] Cardiovascular: Regular rate and rhythm[] Lungs & Thorax: Bilateral breath sounds clear to auscultation [] Abdomen: Bowel sounds normal, soft, with left lower quadrant tenderness. [] Skin: Warm, dry, no erythema, no rash. [] Extremities: No tenderness, no cyanosis, no clubbing, ROM intact, no edema. [] Neurologic: Alert and oriented X 3, no focal deficits noted. [] Current Patient Data Vital Signs Vital Signs Date Time Temp Pulse Resp B/P (MAP) Pulse Ox O2 Delivery O2 Flow Rate FiO2 03/13/19 03:25 97.7 101 20 174/88 (116) 100 Room Air 97.7 Lab Values Laboratory Tests Test 03/13/19 03:39 03/13/19 03:43 Urine Collection Type Unknown Urine Color Yellow Urine Clarity Clear Urine pH 5.0 Urine Specific Lyme >=1.030 Urine Protein 100 mg/dL (NEG-TRACE) Urine Glucose (UA) >=1000 mg/dL (NEG) Urine Ketones (Stick) Negative mg/dL (NEG) Urine Blood Negative (NEG) Urine Nitrite Negative (NEG) Urine Bilirubin Negative (NEG) Urine Urobilinogen Dipstick 0.2 mg/dL (0.2 mg/dL) Urine Leukocyte Esterase Negative (NEG) Urine RBC 0 /HPF (0-2) Urine WBC 1-4 /HPF (0-4) Urine Squamous Epithelial Cells Mod /LPF Urine Bacteria 0 /HPF (0-FEW) Urine Mucus Slight /LPF Urine Yeast Present /HPF White Blood Count 5.5 x10^3/uL (4.0-11.0) Red Blood Count 5.01 x10^6/uL (3.50-5.40) Hemoglobin 15.0 g/dL (12.0-15.5) Hematocrit 44.6 % (36.0-47.0) Mean Corpuscular Volume 89 fL (79-100) Mean Corpuscular Hemoglobin 30 pg (25-35) Mean Corpuscular Hemoglobin Concent 34 g/dL (31-37) Red Cell Distribution Width 14.2 % (11.5-14.5) Platelet Count 321 x10^3/uL (140-400) Neutrophils (%) (Auto) 50 % (31-73) Lymphocytes (%) (Auto) 41 % (24-48) Monocytes (%) (Auto) 7 % (0-9) Eosinophils (%) (Auto) 2 % (0-3) Basophils (%) (Auto) 1 % (0-3) Neutrophils # (Auto) 2.8 x10^3/uL (1.8-7.7) Lymphocytes # (Auto) 2.3 x10^3/uL (1.0-4.8) Monocytes # (Auto) 0.4 x10^3/uL (0.0-1.1) Eosinophils # (Auto) 0.1 x10^3/uL (0.0-0.7) Basophils # (Auto) 0.1 x10^3/uL (0.0-0.2) Sodium Level 140 mmol/L (136-145) Potassium Level 3.7 mmol/L (3.5-5.1) Chloride Level 102 mmol/L (98-107) Carbon Dioxide Level 29 mmol/L (21-32) Anion Gap 9 (6-14) Blood Urea Nitrogen 12 mg/dL (7-20) Creatinine 0.9 mg/dL (0.6-1.0) Estimated GFR (Cockcroft-Gault) 78.7 BUN/Creatinine Ratio 13 (6-20) Glucose Level 334 mg/dL (70-99) H Calcium Level 9.5 mg/dL (8.5-10.1) Total Bilirubin 0.3 mg/dL (0.2-1.0) Aspartate Amino Transferase (AST) 14 U/L (15-37) L Alanine Aminotransferase (ALT) 30 U/L (14-59) Alkaline Phosphatase 101 U/L (46-116) Total Protein 7.7 g/dL (6.4-8.2) Albumin 3.7 g/dL (3.4-5.0) Albumin/Globulin Ratio 0.9 (1.0-1.7) L Lipase 155 U/L (73-393) Laboratory Tests 03/13/19 03:43 Laboratory Tests 03/13/19 03:43 EKG EKG [] Radiology/Procedures Radiology/Procedures [] Impressions: ROCEDURE: CT ABDOMEN PELVIS WO CONTRAST CT abdomen pelvis without contrast. HISTORY: Left flank pain. CT scan the abdomen and pelvis was done without contrast. Comparison is made with a study from January 26, 2019. There is linear scarring or atelectasis in the lingula and right middle lobe. There is no effusion. There is small densities in the lung bases without change from the recent study. There is diffuse fatty change in the liver without a focal liver lesion. Spleen and right adrenal gland are normal. There is fullness in the inferior left adrenal gland possible adenoma without change. A pancreatic lesion is not identified. Appendix is normal. There is no bowel obstruction. Uterus and ovaries are unremarkable. There is mild diverticulosis without an acute diverticulitis. There is no mass or hydronephrosis or calculus in the left kidney. A left ureteral calculus is not identified. There is a punctate intrarenal calculus in the right kidney. There is no right hydronephrosis. There is no retroperitoneal adenopathy. IMPRESSION: 1. Punctate intrarenal calculus right kidney. 2. No ureteral calculus or hydronephrosis noted. 3. No bowel obstruction. 4. Normal appendix. 5. Diffuse fatty change in the liver. PQRS Compliance Statement: One or more of the following individualized dose reduction techniques were utilized for this examination: 1. Automated exposure control 2. Adjustment of the mA and/or kV according to patient size 3. Use of iterative reconstruction technique Electronically signed by: Antonette Agee MD (03/13/2019 4:51 AM) [facility] DICTATED and SIGNED BY: ANTONETTE AGEE MD DATE: 03/13/19 0451 Course & Med Decision Making Course & Med Decision Making Pertinent Labs and Imaging studies reviewed. (See chart for details) [] Dragon Disclaimer Dragon Disclaimer This electronic medical record was generated, in whole or in part, using a voice recognition dictation system. Departure Departure Impression: Primary Impression: Flank pain Additional Impression: Abdominal pain Disposition: HOME, SELF-CARE Condition: STABLE Referrals: UNKNOWN PCP NAME (PCP) Patient Instructions: Abdominal Pain, Flank Pain Scripts Tramadol Hcl (TRAMADOL HCL) 50 Mg Tablet 50 MG PO Q6HRS PRN for PAIN, #10 TAB Prov: EMIL OSORIO Jr. DO 03/13/19 Ondansetron (ONDANSETRON ODT) 4 Mg Tab.rapdis 1 TAB PO PRN Q6-8HRS PRN for NAUSEA, #15 TAB Prov: EMIL OSORIO Jr. DO 03/13/19 Problem Qualifiers Additional Impression: Abdominal pain Abdominal location: lower abdomen, unspecified Qualified Codes: R10.30 - Lower abdominal pain, unspecified EMIL OSORIO Jr. DO Mar 13, 2019 03:42
[2019-03-13] MEDS ORDERED: IV NORMAL SALINE 1000ML BAG 1,000 ML IV SCH (03:45)
[2019-03-13] MEDS ORDERED: ONDANSETRON PF 4 MG/2 ML VIAL. IV ONE (03:45)
[2019-03-13] MEDS ORDERED: KETOROLAC 30 MG/ML VIAL. IV ONE (03:45)
[2019-03-13 03:53] LABS: BASO # 0.1 x10^3/uL (0.0-0.2); BASO % 1 % (0-3); EOS # 0.1 x10^3/uL (0.0-0.7); EOS % 2 % (0-3); HEMATOCRIT 44.6 % (36.0-47.0); LYMPH # 2.3 x10^3/uL (1.0-4.8); LYMPH % 41 % (24-48); MEAN CORPUSCULAR HEMOGLOBIN 30 pg (25-35); MEAN CORPUSCULAR HGB CONC 34 g/dL (31-37); MEAN CORPUSCULAR VOLUME 89 fL (79-100); MONO # 0.4 x10^3/uL (0.0-1.1); MONO % 7 % (0-9); NEUT # 2.8 x10^3/uL (1.8-7.7); NEUT % 50 % (31-73); PLATELET COUNT 321 x10^3/uL (140-400); RED BLOOD COUNT 5.01 x10^6/uL (3.50-5.40); RED CELL DISTRIBUTION WIDTH 14.2 % (11.5-14.5); WHITE BLOOD COUNT 5.5 x10^3/uL (4.0-11.0)
[2019-03-13 03:58] LABS: BILIRUBIN,URINE NEGATIVE (NEG); CLARITY,URINE CLEAR; COLOR,URINE YELLOW; NITRITE,URINE NEGATIVE (NEG); PROTEIN,URINE 100 mg/dL (NEG-TRACE); UROBILINOGEN,URINE 0.2 mg/dL (0.2 mg/dL)
[2019-03-13 04:02] LABS: CALCIUM 9.5 mg/dL (8.5-10.1); CREATININE 0.9 mg/dL (0.6-1.0); GFR 78.7; POTASSIUM 3.7 mmol/L (3.5-5.1)
[2019-03-13 04:03] LABS: SQUAMOUS EPITHELIAL CELL,UR MOD /LPF
[2019-03-13 04:04] LABS: BACTERIA,URINE 0 /HPF (0-FEW); RBC,URINE 0 /HPF (0-2); YEAST,URINE PRESENT /HPF
[2019-03-13 04:08] LABS: ALBUMIN 3.7 g/dL (3.4-5.0); ALBUMIN/GLOBULIN RATIO 0.9 (1.0-1.7); TOTAL BILIRUBIN 0.3 mg/dL (0.2-1.0); TOTAL PROTEIN 7.7 g/dL (6.4-8.2)
--- NOTE | 2019-03-13 04:54 | RAD ---
CT abdomen pelvis without contrast. HISTORY: Left flank pain. CT scan the abdomen and pelvis was done without contrast. Comparison is made with a study from January 26, 2019. There is linear scarring or atelectasis in the lingula and right middle lobe. There is no effusion. There is small densities in the lung bases without change from the recent study. There is diffuse fatty change in the liver without a focal liver lesion. Spleen and right adrenal gland are normal. There is fullness in the inferior left adrenal gland possible adenoma without change. A pancreatic lesion is not identified. Appendix is normal. There is no bowel obstruction. Uterus and ovaries are unremarkable. There is mild diverticulosis without an acute diverticulitis. There is no mass or hydronephrosis or calculus in the left kidney. A left ureteral calculus is not identified. There is a punctate intrarenal calculus in the right kidney. There is no right hydronephrosis. There is no retroperitoneal adenopathy. IMPRESSION: 1. Punctate intrarenal calculus right kidney. 2. No ureteral calculus or hydronephrosis noted. 3. No bowel obstruction. 4. Normal appendix. 5. Diffuse fatty change in the liver. PQRS Compliance Statement: One or more of the following individualized dose reduction techniques were utilized for this examination: 1. Automated exposure control 2. Adjustment of the mA and/or kV according to patient size 3. Use of iterative reconstruction technique Electronically signed by: John Reilly MD (03/13/2019 4:51 AM) [facility]
[2019-03-13 05:05] VITALS: BP 157/80
[2019-03-13] MEDS ORDERED: ONDA4TAB12 PO (05:11)
[2019-03-13] MEDS ORDERED: TRAM50TA PO (05:11)
== END 2019-03-13 05:37 | disposition home or self-care (01) ==
LOC: ER 03:18
DX: R10.32 Left lower quadrant pain (principal); F32.9 Major depressive disorder, single episode, unspecified; E11.9 Type 2 diabetes mellitus without complications; I10 Essential (primary) hypertension; Z91.041 Radiographic dye allergy status
CPT/HCPCS: 36415; 74176; 80053; 81001; 83690; 85025; 96374; 96375; 99285; J1885; J2405; J7030

== ENCOUNTER 2019-08-10 16:33 | Emergency (ER) | payer OTHER ==
[~2019-08-10] VITALS: Ht 167.6 cm; Wt 94.2 kg
[~2019-08-10 16:33] MED LIST changes: +METF-658 PO; -METF500T11 PO; +ONDA4TAB12 PO
[2019-08-10] MEDS ORDERED: IV NORMAL SALINE 1000ML BAG 1,000 ML IV SCH (18:17)
--- NOTE | 2019-08-10 18:21 | PHYS DOC ---
Past Medical History Past Medical History: Depression, Diabetes-Type II, Endometriosis, Hypert ension, Sciatica Additional Past Medical Histor: chronic back and hip pain,bacterial vaginosis,endometriosis Past Surgical History: Other Additional Past Surgical Histo: TOENAIL, LEFT ARM, BREAST (L); endometrium ablation Smoking Status: Light Tobacco Smoker Alcohol Use: Occasionally Drug Use: None General Adult EDM: Chief Complaint: BLOOD SUGAR PROBLEM HPI: HPI: Patient is a 53 year old female who presents with complaint of elevated blood sugar and just not feeling well for the last day. Patient indicates that she and her had celebrated on Father's Day and again yesterday, stating that they had drank a lot of alcohol. Patient is a diabetic and indicates that she h as not been taking any of her diabetes medications for the last few days. She states that she has not had any water to drink just alcohol. She denies any chest pain or shortness of breath. She does indicate that yesterday she had a bit of a sore throat and then today she has pressure in her head and behind her eyes with sinus drainage. [] Review of Systems: Review of Systems: Constitutional: Denies fever or chills. [] Respiratory: Denies cough or shortness of breath. [] Cardiovascular: Denies chest pain or edema. [] Integument: Denies rash. [] Neurologic: Complains of headache without focal weakness or sensory changes. [] A full 10 point review of systems has been reviewed and is otherwise negative. Heart Score: Risk Factors: Risk Factors: DM, Current or recent (<one month) smoker, HTN, HLP, family history of CAD, obesity. Risk Scores: Score 0 - 3: 2.5% MACE over next 6 weeks - Discharge Home Score 4 - 6: 20.3% MACE over next 6 weeks - Admit for Clinical Observation Score 7 - 10: 72.7% MACE over next 6 weeks - Early Invasive Strategies Allergies: Allergies: Allergies Coded Allergies Type Severity Reaction Last Updated Verified Iodine and Iodide Containing Produc Allergy Intermediate itching 06/13/17 Yes Physical Exam: PE: Constitutional: Well developed, well nourished, no acute distress, non-toxic appearance. [] HENT: Normocephalic, atraumatic, bilateral external ears normal, oropharynx moist, no oral exudates, nose normal. [] Eyes: PERRLA, EOMI, conjunctiva normal, no discharge. [] Neck: Normal range of motion, no tenderness, supple, no stridor. [] Cardiovascular: Regular rate and rhythm [] Lungs & Thorax: Bilateral breath sounds clear to auscultation [] Abdomen: Bowel sounds normal, soft, no tenderness. [] Skin: Warm, dry, no erythema, no rash. [] Extremities: No tenderness, no cyanosis, no clubbing, ROM intact, no edema. [] Neurologic: Alert and oriented X 3, no focal deficits noted. [] Current Patient Data: Vital Signs: Vital Signs Date Time Temp Pulse Resp B/P (MAP) Pulse Ox O2 Delivery O2 Flow Rate FiO2 08/10/19 17:20 98.2 83 18 147/83 (104) 100 Room Air 98.2 EKG: EKG: [] Radiology/Procedures: Radiology/Procedures: [] Course & Med Decision Making: Course & Med Decision Making Pertinent Labs and Imaging studies reviewed. (See chart for details) [] Dragon Disclaimer: Dragon Disclaimer: This electronic medical record was generated, in whole or in part, using a voice recognition dictation system. Departure Departure Impression: Primary Impression: Hyperglycemia due to type 2 diabetes mellitus Qualified Codes: E11.65 - Type 2 diabetes mellitus with hyperglycemia Additional Impression: Dehydration Disposition: 01 HOME, SELF-CARE Condition: STABLE Referrals: AUGUSTINE MIRAMONTES MD (PCP) Patient Instructions: Dehydration, Adult, Hyperglycemia, Type 2 Diabetes Mellitus, Adult Justicifation of Admission Dx: Justifications for Admission: Justification of Admission Dx: Comment: (Not applicable) EMIL OSORIO Jr. DO Aug 10, 2019 18:21
[2019-08-10 18:27] LABS: BASO # 0.1 x10^3/uL (0.0-0.2); BASO % 1 % (0-3); EOS # 0.2 x10^3/uL (0.0-0.7); EOS % 3 % (0-3); HEMATOCRIT 40.3 % (36.0-47.0); HEMOGLOBIN 13.3 g/dL (12.0-15.5); LYMPH # 2.8 x10^3/uL (1.0-4.8); LYMPH % 47 % (24-48); MEAN CORPUSCULAR HEMOGLOBIN 30 pg (25-35); MEAN CORPUSCULAR HGB CONC 33 g/dL (31-37); MEAN CORPUSCULAR VOLUME 90 fL (79-100); MONO # 0.4 x10^3/uL (0.0-1.1); MONO % 7 % (0-9); NEUT # 2.6 x10^3/uL (1.8-7.7); NEUT % 43 % (31-73); PLATELET COUNT 313 x10^3/uL (140-400); RED BLOOD COUNT 4.49 x10^6/uL (3.50-5.40); RED CELL DISTRIBUTION WIDTH 15.2 % (11.5-14.5)
[2019-08-10 18:28] LABS: BILIRUBIN,URINE NEGATIVE (NEG); CLARITY,URINE CLEAR; COLOR,URINE YELLOW; NITRITE,URINE NEGATIVE (NEG); PH,URINE 5.5 (<5.0-8.0); PROTEIN,URINE 30 mg/dL (NEG-TRACE); UROBILINOGEN,URINE 0.2 mg/dL (0.2 mg/dL)
[2019-08-10 18:39] LABS: ANION GAP 10 (6-14); BLOOD UREA NITROGEN 16 mg/dL (7-20); BUN/CREATININE RATIO 16 (6-20); CALCIUM 9.1 mg/dL (8.5-10.1); CARBON DIOXIDE 26 mmol/L (21-32); CHLORIDE 100 mmol/L (98-107); GFR 69.7; GLUCOSE 366 mg/dL (70-99); POTASSIUM 4.1 mmol/L (3.5-5.1); SODIUM 136 mmol/L (136-145)
[2019-08-10 18:45] LABS: ALBUMIN/GLOBULIN RATIO 0.8 (1.0-1.7); ALK PHOS 144 U/L (46-116); ALT (SGPT) 28 U/L (14-59); AST (SGOT) 15 U/L (15-37); MAGNESIUM 1.9 mg/dL (1.8-2.4); TOTAL BILIRUBIN < 0.1 mg/dL (0.2-1.0); TOTAL PROTEIN 6.7 g/dL (6.4-8.2)
[2019-08-10 18:59] LABS: BACTERIA,URINE MODERATE /HPF (0-FEW); YEAST,URINE PRESENT /HPF
[2019-08-10 19:00] LABS: RBC,URINE 0 /HPF (0-2); SQUAMOUS EPITHELIAL CELL,UR MOD /LPF; WBC,URINE RARE /HPF (0-4)
[2019-08-10] MEDS ORDERED: INSULIN REGULAR 100 UNIT/ML 3ML VIAL. IV ONE (19:30)
[2019-08-10] MEDS ORDERED: IV NORMAL SALINE 1000ML BAG 1,000 ML IV ONE (19:30)
[2019-08-10 21:00] VITALS: BP 161/84
--- NOTE | 2019-08-11 05:24 | EKG ---
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
--- NOTE | 2019-08-17 14:37 | EKG ---
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
== END 2019-08-10 21:08 | disposition home or self-care (01) ==
LOC: ER 16:33
DX: E11.65 Type 2 diabetes mellitus with hyperglycemia (principal); E86.0 Dehydration; E11.9 Type 2 diabetes mellitus without complications; I10 Essential (primary) hypertension; Z72.0 Tobacco use; Z91.041 Radiographic dye allergy status
CPT/HCPCS: 36415; 80053; 81001; 83735; 85025; 87086; 93005; 96361; 96374; 99285; J1815; J7030

== ENCOUNTER 2019-09-17 18:56 | Emergency (ER) | payer OTHER ==
[~2019-09-17] VITALS: Ht 170.2 cm; Wt 93.0 kg
--- NOTE | 2019-09-17 20:39 | PHYS DOC ---
Past Medical History Past Medical History: Depression, Diabetes-Type II, Endometriosis, Hypert ension, Sciatica Additional Past Medical Histor: chronic back and hip pain,bacterial vaginosis,endometriosis (TIMI LEA APRN) Past Surgical History: Other Additional Past Surgical Histo: TOENAIL, LEFT ARM, BREAST (L); endometrium ablation (TIMI LEA APRN) Smoking Status: Light Tobacco Smoker Alcohol Use: Occasionally Drug Use: None (TIMI LEA APRN) Attending Signature I have participated in the care of this patient and I have reviewed and agree with all pertinent clinical information above including history, exam, and recommendations. (JOVANY MARTINO MD) General Adult EDM: Chief Complaint: HAND PROBLEM HPI: HPI: Patient is a 53 year old AA female who presents to the emergency department with complaints of pain in her left wrist and thumb. Patient states that a week ago she reached out to catch herself from falling and injured her left thumb and left wrist. She states that she continues to feel a popping sensation at the base of her left thumb and in her wrist with certain movements. The patient was seen in the urgent care center today and a wrist splint was applied. They ins tructed her to go to the emergency room for an x-ray as there was no radiology person at their facility currently. Patient currently rates her pain a 5 out of 10 on the pain scale, she denies any radiation of the pain, she denies any numbness, or tingling of the affected area. She states that movement increases her pain and wearing the wrist splint has helped to reduce the pain. (TIMI LEA APRN) Review of Systems: Review of Systems: Constitutional: Denies fever or chills. [] Musculoskeletal: See HPI Integument: Denies rash. [] Neurologic: Denies focal weakness or sensory changes. [] Psychiatric: Denies depression or anxiety. [] (TIMI LEA APRN) Heart Score: Risk Factors: Risk Factors: DM, Current or recent (<one month) smoker, HTN, HLP, family history of CAD, obesity. Risk Scores: Score 0 - 3: 2.5% MACE over next 6 weeks - Discharge Home Score 4 - 6: 20.3% MACE over next 6 weeks - Admit for Clinical Observation Score 7 - 10: 72.7% MACE over next 6 weeks - Early Invasive Strategies (TIMI LEA APRN) Allergies: Allergies: Allergies Coded Allergies Type Severity Reaction Last Updated Verified Iodine and Iodide Containing Produc Allergy Intermediate itching 06/13/17 Yes (TIMI LEA APRN) Physical Exam: PE: Constitutional: Well developed, well nourished, no acute distress, non-toxic appearance. [] HENT: Normocephalic, atraumatic, bilateral external ears normal, nose normal. [] Eyes: PERRLA, conjunctiva normal, no discharge. [] Neck: Normal range of motion, no stridor. [] Cardiovascular:Heart rate regular rhythm Lungs & Thorax: Respirations even and unlabored, no retractions, no respiratory distress Abdomen: soft, no tenderness Skin: Warm, dry, no erythema, no rash. [] Extremities: No cyanosis, ROM intact, no edema. [] Neurologic: Alert and oriented X 3, no focal deficits noted. [] Psychologic: Affect normal, judgement normal, mood normal. [] (TIMI LEA APRN) EKG: EKG: [] (TIMI LEA APRN) Radiology/Procedures: Radiology/Procedures: PROCEDURE: FINGER(S) LEFT Exam: Left finger 3 views INDICATION: Left wrist and thumb pain for a week TECHNIQUE: Frontal view of the left hand with oblique and lateral views of the first digit Comparisons: None FINDINGS: Bone mineralization is normal. No acute or healed fractures. Soft tissues are unremarkable. Joint spaces are well-maintained. IMPRESSION: No acute osseous abnormality.[] ROCEDURE: WRIST 3V LEFT EXAM: 3 views left wrist DATE: 09/17/2019 8:51 PM INDICATION: Reason: L wrist and L thumb pain for a week / Spl. Instructions: / History: COMPARISON: No Prior FINDINGS/ IMPRESSION: 1. No evidence of acute fracture or dislocation. 2. Thumb CMC joint degenerative changes are seen. Triscaphe joint is preserved. (TIMI LEA APRN) Course & Med Decision Making: Course & Med Decision Making Pertinent Labs and Imaging studies reviewed. (See chart for details) (TIMI LEA APRN) Alexsandra Disclaimer: Alexsandra Disclaimer: This electronic medical record was generated, in whole or in part, using a voice recognition dictation system. (TIMI LEA APRN) Departure Departure Impression: Primary Impression: Pain in left wrist Disposition: 01 HOME, SELF-CARE Condition: STABLE Referrals: AUGUSTINE MIRAMONTES MD (PCP) TAMIKO BRANCH II, MD Patient Instructions: Wrist Pain, [id number] Additional Instructions: You can take Tylenol or ibuprofen as needed for pain. Continue to wear the wrist splint that was provided to you by the urgent care center as needed for comfort. Call Dr. Branch's office for further evaluation if symptoms persist. Return to the ER if your symptoms worsen. Justicifation of Admission Dx: Justifications for Admission: Justification of Admission Dx: N/A (TIMI LEA APRN) TIMI LEA APRN Sep 17, 2019 20:39 JOVANY MARTINO MD Sep 18, 2019 03:32
--- NOTE | 2019-09-17 21:19 | RAD ---
Exam: Left finger 3 views INDICATION: Left wrist and thumb pain for a week TECHNIQUE: Frontal view of the left hand with oblique and lateral views of the first digit Comparisons: None FINDINGS: Bone mineralization is normal. No acute or healed fractures. Soft tissues are unremarkable. Joint spaces are well-maintained. IMPRESSION: No acute osseous abnormality. Electronically signed by: Blanca Moscoso MD (09/17/2019 9:17 PM) [id number]
--- NOTE | 2019-09-17 21:21 | RAD ---
EXAM: 3 views left wrist DATE: 09/17/2019 8:51 PM INDICATION: Reason: L wrist and L thumb pain for a week / Spl. Instructions: / History: COMPARISON: No Prior FINDINGS/ IMPRESSION: 1. No evidence of acute fracture or dislocation. 2. Thumb CMC joint degenerative changes are seen. Triscaphe joint is preserved. Electronically signed by: Rom Oviedo MD (09/17/2019 9:17 PM) [facility]
[2019-09-17 21:40] VITALS: BP 146/112
== END 2019-09-17 21:43 | disposition home or self-care (01) ==
LOC: ER 18:56
DX: M25.532 Pain in left wrist (principal); M79.645 Pain in left finger(s); E11.9 Type 2 diabetes mellitus without complications; I10 Essential (primary) hypertension; G89.29 Other chronic pain; Z72.0 Tobacco use; Z91.041 Radiographic dye allergy status
CPT/HCPCS: 73110; 73140; 99284

== ENCOUNTER 2019-09-23 18:22 | Emergency (ER) | payer OTHER ==
[~2019-09-23] VITALS: Ht 167.6 cm; Wt 93.0 kg
--- NOTE | 2019-09-23 18:40 | PHYS DOC ---
Past Medical History Past Medical History: Depression, Diabetes-Type II, Endometriosis, Hypert ension, Sciatica Additional Past Medical Histor: chronic back and hip pain,bacterial vaginosis,endometriosis Past Surgical History: Other Additional Past Surgical Histo: TOENAIL, LEFT ARM, BREAST (L); endometrium ablation Smoking Status: Current Every Day Smoker Alcohol Use: Occasionally Drug Use: None General Adult EDM: Chief Complaint: RAPID HEART RATE HPI: HPI: Patient is a 53 year old female who presents with presyncope. Patient reports that she been in her usual state of fair health reporting that she did not have any physical complaints when she went on a walk today to help with her stress levels. Patient has had multiple family members in the last 3 months and s uffers from some medical problems herself. She denies any suicidal or homicidal ideation however. While on her walk towards the end of it she began to feel weak in her lower extremities and noted that she started to stumble and felt very short of breath and noted that she felt like she was going to pass out. She did not lose consciousness and denied any chest pain. EMS arrived and after evaluation the patient was given adenosine 6 mg IV x1 with conversion to sinus rhythm. Once this happened the patient reports that her shortness of breath resolved and now she feels like she is back to normal. She denies at this time chest pain, shortness of breath, nausea or vomiting, abdominal pain, lower extremity pain headache or any focal neurological changes. Review of Systems: Review of Systems: Constitutional: Denies fever or chills. [] Eyes: Denies change in visual acuity. [] HENT: Denies nasal congestion or sore throat. [] Respiratory: Denies cough [] Cardiovascular: See HPI[] GI: Denies abdominal pain, nausea, vomiting, bloody stools or diarrhea. [] : Denies dysuria. [] Musculoskeletal: Denies back pain or joint pain. [] Integument: Denies rash. [] Neurologic: Denies headache, focal weakness or sensory changes. [] Endocrine: Denies polyuria or polydipsia. [] Lymphatic: Denies swollen glands. [] Psychiatric: Patient does complain of depression, denies SI HI.. [] Heart Score: Risk Factors: Risk Factors: DM, Current or recent (<one month) smoker, HTN, HLP, family history of CAD, obesity. Risk Scores: Score 0 - 3: 2.5% MACE over next 6 weeks - Discharge Home Score 4 - 6: 20.3% MACE over next 6 weeks - Admit for Clinical Observation Score 7 - 10: 72.7% MACE over next 6 weeks - Early Invasive Strategies Allergies: Allergies: Allergies Coded Allergies Type Severity Reaction Last Updated Verified Iodine and Iodide Containing Produc Allergy Intermediate itching 06/13/17 Yes Physical Exam: PE: Constitutional: Well developed, well nourished, no acute distress, non-toxic appearance. Anxious [] HENT: Normocephalic, atraumatic, bilateral external ears normal, oropharynx moist, no oral exudates, nose normal. [] Eyes: PERRLA, EOMI, conjunctiva normal, no discharge. [] Neck: Normal range of motion, no tenderness, supple, no stridor. [] Cardiovascular:Heart rate regular rhythm, grade 1/6 systolic murmur, no S3 or S4, no JVD, pulses 2 of 2 dorsalis pedis bilaterally. [] Lungs & Thorax: Bilateral breath sounds clear to auscultation [] Abdomen: Bowel sounds normal, soft, no tenderness, no masses, no pulsatile masses. [] Skin: Warm, dry, no erythema, no rash. [] Back: No tenderness, no CVA tenderness. [] Extremities: No tenderness, no cyanosis, no clubbing, ROM intact, no edema. [] Neurologic: Alert and oriented X 3, normal motor function, normal sensory function, no focal deficits noted. [] Psychologic: Affect anxious and at times tearful, judgement normal, mood depressed. [] Current Patient Data: Vital Signs: Vital Signs Date Time Temp Pulse Resp B/P (MAP) Pulse Ox O2 Delivery O2 Flow Rate FiO2 09/23/19 18:29 98.9 105 18 156/85 (108) 99 Room Air 98.9 EKG: EKG: Heart rate of 106 bpm, left atrial enlargement, nonspecific T wave changes in the lateral leads, abnormal ECG, normal intervals [] Radiology/Procedures: Radiology/Procedures: [] Course & Med Decision Making: Course & Med Decision Making Pertinent Labs and Imaging studies reviewed. (See chart for details) 2013-the patient was seen and examined. Patient was reevaluated. Patient is remained stable throughout her hospitalization here in the emergency department without any recurrence of her SVT. I reviewed all laboratory data. No evidence for next medical or surgical problems identified at this time. I think she does need further evaluation by cardiology and referred her to Dr. Robledo. I discussed with her reasons to return, treatment plan and need for follow-up. Patient will be given some medication for insomnia given the amount of stress that she is under. I feel comfortable in giving her this since she is not suicidal or homicidal. Will prescribe Ambien 10 mg p.o. #10. [] Dragon Disclaimer: Dragon Disclaimer: This electronic medical record was generated, in whole or in part, using a voice recognition dictation system. Departure Departure Impression: Primary Impression: Pre-syncope Additional Impressions: SVT (supraventricular tachycardia) Hypokalemia Insomnia Qualified Codes: F51.04 - Psychophysiologic insomnia Disposition: HOME, SELF-CARE Condition: IMPROVED Referrals: AUGUSTINE MIRAMONTES MD (PCP) DAMASO ROBLEDO MD Patient Instructions: Supraventricular Tachycardia Additional Instructions: Try to drink some orange juice and eat foods that would contain potassium such as potatoes, broccoli, fresh fruit. Follow-up with your primary care physician in the next 7 to [address] Robledo's office for follow-up. Scripts Zolpidem Tartrate (AMBIEN) 10 Mg Tablet 10 MG PO PRN QHS PRN for INSOMNIA, #10 TAB 0 Refills Prov: KIM MCNEIL MD 09/23/19 Justicifation of Admission Dx: Justifications for Admission: Justification of Admission Dx: N/A KIM MCNEIL MD Sep 23, 2019 18:40
[2019-09-23 18:50] LABS: BASO # 0.1 x10^3/uL (0.0-0.2); BASO % 2 % (0-3); EOS # 0.2 x10^3/uL (0.0-0.7); EOS % 3 % (0-3); HEMATOCRIT 42.5 % (36.0-47.0); HEMOGLOBIN 14.6 g/dL (12.0-15.5); LYMPH # 3.2 x10^3/uL (1.0-4.8); LYMPH % 49 % (24-48); MEAN CORPUSCULAR HEMOGLOBIN 30 pg (25-35); MEAN CORPUSCULAR HGB CONC 34 g/dL (31-37); MEAN CORPUSCULAR VOLUME 88 fL (79-100); MONO # 0.4 x10^3/uL (0.0-1.1); MONO % 7 % (0-9); NEUT # 2.6 x10^3/uL (1.8-7.7); NEUT % 40 % (31-73); PLATELET COUNT 329 x10^3/uL (140-400); RED BLOOD COUNT 4.82 x10^6/uL (3.50-5.40); RED CELL DISTRIBUTION WIDTH 14.3 % (11.5-14.5); WHITE BLOOD COUNT 6.5 x10^3/uL (4.0-11.0)
[2019-09-23 18:59] LABS: CALCIUM 9.4 mg/dL (8.5-10.1); CREATININE 0.8 mg/dL (0.6-1.0); GFR 90.1; POTASSIUM 3.2 mmol/L (3.5-5.1)
[2019-09-23 19:05] LABS: ALBUMIN 3.5 g/dL (3.4-5.0); ALBUMIN/GLOBULIN RATIO 0.9 (1.0-1.7); TOTAL BILIRUBIN 0.3 mg/dL (0.2-1.0); TOTAL PROTEIN 7.6 g/dL (6.4-8.2)
--- NOTE | 2019-09-23 19:26 | RAD ---
PA and lateral chest radiographs 09/23/2019 CLINICAL HISTORY: Shortness of breath. PA and lateral digital radiographs of the chest were obtained. Comparison study is dated 04/18/2018. The cardiac silhouette is borderline enlarged. The thoracic aorta is tortuous. Atherosclerotic calcification thoracic aorta is seen. No acute pulmonary infiltrate is noted. No pneumothorax or pleural effusion is seen. Very mild S-shaped curvature of the thoracolumbar spine is seen. Degenerative changes are seen involving the thoracic spine. IMPRESSION: No acute abnormality is seen Electronically signed by: Frandy Keyes MD (09/23/2019 7:24 PM) [id number]
[2019-09-23] MEDS ORDERED: POTASSIUM CHLORIDE 20 MEQ TABLET.ER. PO ONE (19:45)
[2019-09-23] MEDS ORDERED: ZOLP10TA PO (20:21)
[2019-09-23 20:25] VITALS: BP 139/86
--- NOTE | 2019-09-24 10:01 | EKG ---
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
== END 2019-09-23 20:34 | disposition home or self-care (01) ==
LOC: ER 18:22
DX: R55 Syncope and collapse (principal); I47.1 Supraventricular tachycardia; E87.6 Hypokalemia; F51.04 Psychophysiologic insomnia; E11.9 Type 2 diabetes mellitus without complications; I10 Essential (primary) hypertension; F17.200 Nicotine dependence, unspecified, uncomplicated; G89.29 Other chronic pain; R94.31 Abnormal electrocardiogram [ECG] [EKG]; Z91.041 Radiographic dye allergy status
CPT/HCPCS: 36415; 71046; 80053; 84443; 85025; 93005; 99285-25

== ENCOUNTER 2020-08-05 16:38 | Emergency (ER) | payer SELFPAY ==
[~2020-08-05] VITALS: Ht 167.6 cm; Wt 90.0 kg
[~2020-08-05 16:38] MED LIST changes: +ZOLP10TA PO
[2020-08-05 17:18] LABS: BILIRUBIN,URINE NEGATIVE (NEG); CLARITY,URINE CLEAR; COLOR,URINE YELLOW; NITRITE,URINE NEGATIVE (NEG); PROTEIN,URINE 100 mg/dL (NEG-TRACE); UROBILINOGEN,URINE 0.2 mg/dL (0.2 mg/dL)
[2020-08-05 17:26] LABS: BACTERIA,URINE 0 /HPF (0-FEW)
[2020-08-05] MEDS ORDERED: IV NORMAL SALINE 1000ML BAG 1,000 ML IV SCH (18:00)
--- NOTE | 2020-08-05 18:01 | PHYS DOC ---
Past Medical History Past Medical History: Depression, Diabetes-Type II, Endometriosis, High C holesterol, Hypertension, Sciatica Additional Past Medical Histor: chronic back and hip pain,bacterial vag inosis,endometriosis Past Surgical History: Other Additional Past Surgical Histo: TOENAIL, LEFT ARM, BREAST (L); endometrium ablation Smoking Status: Current Every Day Smoker Alcohol Use: Occasionally Drug Use: None General Adult EDM: Chief Complaint: PAIN ON URINATION HPI: HPI: Patient is a 54 year old female who presents with here because she has had insomnia with likely for sleep and also home she is having burning with urination and frequent urination. Also she buried her today and she is very depressed and all week long she has not been taking any of her medications. She also recently had to help very her cousin. She is a smoker, diabetic, depression, hypertension, high cholesterol, sciatica and endometriosis. Patient denies chest pain, shortness of air, vomiting, diarrhea, fever, dizziness, syncope, flank pain. Denies any pain right now. She states she mostly has pain when she urinates. Review of Systems: Review of Systems: Constitutional: Denies fever or chills. [] Eyes: Denies change in visual acuity. [] HENT: Denies nasal congestion or sore throat. [] Respiratory: Denies cough or shortness of breath. [] Cardiovascular: Denies chest pain or edema. [] GI: Denies abdominal pain, +nausea, denies vomiting, bloody stools or diarrhea. [] : Denies dysuria. + Burning with urination [] Musculoskeletal: Denies back pain or joint pain. [] Integument: Denies rash. [] Neurologic: Denies headache, focal weakness or sensory changes. [] Endocrine: Denies polyuria or polydipsia. [] Lymphatic: Denies swollen glands. [] Psychiatric: Denies depression or anxiety. + Insomnia [] Heart Score: C/O Chest Pain: No Risk Factors: Risk Factors: DM, Current or recent (<one month) smoker, HTN, HLP, family history of CAD, obesity. Risk Scores: Score 0 - 3: 2.5% MACE over next 6 weeks - Discharge Home Score 4 - 6: 20.3% MACE over next 6 weeks - Admit for Clinical Observation Score 7 - 10: 72.7% MACE over next 6 weeks - Early Invasive Strategies Current Medications: Current Medications Medications (Trade) Dose Ordered Sig/Fransico Start Time Stop Time Status Last Admin Dose Admin Sodium Chloride 1,000 ml @ 1,000 mls/hr Q1H 08/05/20 18:00 08/05/20 18:59 Allergies: Allergies: Allergies Coded Allergies Type Severity Reaction Last Updated Verified Iodine and Iodide Containing Produc Allergy Intermediate itching 06/13/17 Yes Physical Exam: PE: Constitutional: Well developed, well nourished, no acute distress, non-toxic appearance. [] HENT: Normocephalic, atraumatic, bilateral external ears normal, oropharynx moist, no oral exudates, nose normal. [] Eyes: PERRLA, EOMI, conjunctiva normal, no discharge. [] Neck: Normal range of motion, no tenderness, supple, no stridor. [] Cardiovascular:Heart rate regular rhythm, no murmur [] Lungs & Thorax: Bilateral breath sounds clear to auscultation [] Abdomen: Bowel sounds normal, soft, no tenderness, no masses, no pulsatile masses. [] Skin: Warm, dry, no erythema, no rash. [] Back: No tenderness, no CVA tenderness. [] Extremities: No tenderness, no cyanosis, no clubbing, ROM intact, no edema. [] Neurologic: Alert and oriented X 3, normal motor function, normal sensory function, no focal deficits noted. [] Psychologic: Affect normal, judgement normal, mood normal. Normal physical exam [] Current Patient Data: Labs: Laboratory Tests Test 08/05/20 16:40 Urine Collection Type Unknown Urine Color Yellow Urine Clarity Clear Urine pH 6.0 (<5.0-8.0) Urine Specific [place] >=1.030 (1.000-1.030) Urine Protein 100 mg/dL (NEG-TRACE) Urine Glucose (UA) >=1000 mg/dL (NEG) Urine Ketones (Stick) Negative mg/dL (NEG) Urine Blood Negative (NEG) Urine Nitrite Negative (NEG) Urine Bilirubin Negative (NEG) Urine Urobilinogen Dipstick 0.2 mg/dL (0.2 mg/dL) Urine Leukocyte Esterase Negative (NEG) Urine RBC 1-2 /HPF (0-2) Urine WBC 1-4 /HPF (0-4) Urine Squamous Epithelial Cells Few /LPF Urine Bacteria 0 /HPF (0-FEW) Vital Signs: Vital Signs Date Time Temp Pulse Resp B/P (MAP) Pulse Ox O2 Delivery O2 Flow Rate FiO2 08/05/20 17:11 98.2 94 18 154/76 (102) 96 Room Air 98.2 EKG: EK and read by Dr. Licea sinus rhythm with a T wave abnormality but no STEMI. Radiology/Procedures: Radiology/Procedures: [] Course & Med Decision Making: Course & Med Decision Making Pertinent Labs and Imaging studies reviewed. (See chart for details) See HPI. Alert and oriented x4. Ambulatory with a steady gait. Speaks in full clear sentences. Skin pink warm and dry. PERRLA. Abdomen is soft and nontender. No CVA tenderness. Urinalysis shows no infection. Blood work is generally unremarkable except for glucose 354. I will give her a dose of her Metformin that she has not had. Patient is to restart her medications as they are prescribed to her. We will also give her hydroxyzine to help her sleep. [] Baoon Disclaimer: Alexsandra Disclaimer: This electronic medical record was generated, in whole or in part, using a voice recognition dictation system. Departure Departure Impression: Primary Impression: Hyperglycemia Additional Impressions: Urinary symptom or sign Insomnia Qualified Codes: F51.01 - Primary insomnia Disposition: HOME / SELF CARE / HOMELESS Condition: STABLE Referrals: NO PCP (PCP) Patient Instructions: Hyperglycemia, Insomnia Additional Instructions: Follow-up with your primary care provider if needed. Drink plenty of water. Start taking your medications as they are prescribed. If anything worsens you can was come back to the ED. Scripts Hydroxyzine Hcl (HYDROXYZINE HCL) 25 Mg Tablet 1 TAB PO BID PRN for ANXIETY / AGITATION, #30 TAB Prov: YING PABLO DISEASE EDUCATION SPECIALIST 08/05/20 Nitrofurantoin Monohyd/M-Cryst (MACROBID 100 MG CAPSULE) 100 Mg Capsule 1 CAP PO BID for 7 Days, #14 CAP 0 Refills Prov: YING PABLO DISEASE EDUCATION SPECIALIST 08/05/20 YING PABLO DISEASE EDUCATION SPECIALIST Aug 05, 2020 18:01
[2020-08-05 18:22] LABS: BASO # 0.1 x10^3/uL (0.0-0.2); BASO % 1 % (0-3); EOS # 0.1 x10^3/uL (0.0-0.7); EOS % 2 % (0-3); HEMOGLOBIN 13.8 g/dL (12.0-15.5); LYMPH # 3.1 x10^3/uL (1.0-4.8); LYMPH % 46 % (24-48); MEAN CORPUSCULAR HEMOGLOBIN 31 pg (25-35); MEAN CORPUSCULAR HGB CONC 34 g/dL (31-37); MEAN CORPUSCULAR VOLUME 92 fL (79-100); MONO # 0.5 x10^3/uL (0.0-1.1); MONO % 8 % (0-9); NEUT # 2.9 x10^3/uL (1.8-7.7); NEUT % 43 % (31-73); PLATELET COUNT 280 x10^3/uL (140-400); RED BLOOD COUNT 4.44 x10^6/uL (3.50-5.40); RED CELL DISTRIBUTION WIDTH 14.3 % (11.5-14.5); WHITE BLOOD COUNT 6.7 x10^3/uL (4.0-11.0)
[2020-08-05 18:32] LABS: CALCIUM 9.1 mg/dL (8.5-10.1); CREATININE 0.9 mg/dL (0.6-1.0); GFR 78.4; POTASSIUM 4.2 mmol/L (3.5-5.1)
[2020-08-05 18:38] LABS: TOTAL BILIRUBIN 0.1 mg/dL (0.2-1.0); TOTAL PROTEIN 6.1 g/dL (6.4-8.2)
[2020-08-05 18:44] VITALS: BP 163/79
[2020-08-05] MEDS ORDERED: NITR100C62 PO (18:48)
[2020-08-05] MEDS ORDERED: HYDR25TA PO (18:48)
[2020-08-05] MEDS ORDERED: metFORMIN 500 MG TABLET PO ONE (19:00)
--- NOTE | 2020-08-05 19:03 | EKG ---
[facility] [address] [place] [address] Test Date: 2020-08-05 Test Time: 18:03:34 Pat Name: JORDON OSORIO Department: Room: Gender: F Mh Teacher: : 1965 Requested By: YING PABLO Order Number: [id number] Reading MD: Measurements Intervals [place] Rate: 85 P: 66 AL: 154 QRS: 5 QRSD: 70 T: 76 QT: 368 QTc: 443 Interpretive Statements SINUS RHYTHM T ABNORMALITY IN HIGH LATERAL LEADS ABNORMAL ECG RI6.02 No previous ECG available for comparison
== END 2020-08-05 19:21 | disposition home or self-care (01) ==
LOC: ER 16:38
DX: E11.65 Type 2 diabetes mellitus with hyperglycemia (principal); F51.01 Primary insomnia; R35.0 Frequency of micturition; G47.00 Insomnia, unspecified; E78.00 Pure hypercholesterolemia, unspecified; I10 Essential (primary) hypertension; G89.29 Other chronic pain; F17.200 Nicotine dependence, unspecified, uncomplicated; Z91.041 Radiographic dye allergy status
CPT/HCPCS: 36415; 80053; 81001; 83690; 84484; 85025; 93005; 96360; 99284; J7030